=== PATIENT | male | born 1960 | race Caucasian/White ===

== ENCOUNTER 2016-09-06 09:13 | Inpatient (IN) | payer MEDICARE, MEDICAID ==
[~2016-09-06] VITALS: Ht 188 cm; Wt 78.1 kg
[~2016-09-06 09:13] MED LIST: OLAN405V IM
[2016-09-06 09:52] LABS: BASOPHILS # (AUTO) 0.12 K/uL (0.00-0.20); BASOPHILS % (AUTO) 1.1 % (0.0-2.0); EOSINOPHILS # (AUTO) 0.12 K/uL (0.00-0.70); EOSINOPHILS % (AUTO) 1.12 % (1.0-6.0); HEMATOCRIT 42.8 % (41-53); HEMOGLOBIN 14.1 g/dL (13.5-17.5); LYMPHOCYTES # (AUTO) 1.8 K/uL (1.0-4.8); LYMPHOCYTES % (AUTO) 16.5 % (22.0-44.0); MEAN CORPUSCULAR HEMOGLOBIN 30.2 pg (26.0-34.0); MEAN CORPUSCULAR VOLUME 92 fL (80-100); MONOCYTES # (AUTO) 0.9 K/uL (0.1-1.0); MONOCYTES % (AUTO) 7.8 % (2.0-9.0); NEUTROPHILS # (AUTO) 8.1 K/uL (1.8-7.7); NEUTROPHILS % (AUTO) 73.6 % (40.0-70.0); PLATELET COUNT (AUTO) 401 K/uL (150-450); RED BLOOD CELL COUNT(AUTO) 4.67 MIL/uL (4.50-5.90)
[2016-09-06 10:02] LABS: ANION GAP 7 mmol/L (8-16); CALCIUM, TOTAL 9.5 mg/dL (8.8-10.5); CARBON DIOXIDE 29 mmol/L (22-29); CHLORIDE 102 mmol/L (98-107); CREATININE 0.94 mg/dL (0.60-1.30); GLOMERULAR FILTR. RATE CALC > 60 mL/min (>60); POTASSIUM 5.4 mmol/L (3.5-5.1); SODIUM SERUM 138 mmol/L (136-145); UREA NITROGEN, BLOOD 21 mg/dL (7-18)
[2016-09-06 10:07] LABS: ALANINE AMINOTRANSFERASE 57 U/L (12-78); ALBUMIN 3.4 g/dL (3.4-5.0); ASPARTATE AMINOTRANSFERASE 36 U/L (15-37); BILIRUBIN,TOTAL 0.3 mg/dL (0.1-1.0); TOTAL PROTEIN, SERUM 7.5 g/dL (6.4-8.2)
[2016-09-06] MEDS ORDERED: LORazepam 1 MG TABLET PO ONE (12:00)
[2016-09-06] MEDS ORDERED: OLANZapine 5 MG TABLET PO ONE (12:00)
[2016-09-06] MEDS ORDERED: QUEtiapine FUMARATE 100 MG TABLET PO PRN (12:30)
[2016-09-06] MEDS ORDERED: ZOLPIDEM TARTRATE 10 MG TABLET PO PRN (12:30)
[2016-09-06 13:30] VITALS: BP 137/84
[2016-09-06 17:00] VITALS: BP 128/83
[2016-09-06 18:42] LABS: ADD UA MICROSCOPIC NO; APPEARANCE,URINE CLEAR (CLEAR); GLUCOSE, URINE (UA) NEGATIVE (NEGATIVE); KETONES,URINE NEGATIVE (NEGATIVE); LEUKOCYTE ESTERASE ,URINE NEGATIVE (NEGATIVE); OCCULT BLOOD,URINE NEGATIVE (NEGATIVE); PROTEIN,URINE NEGATIVE (NEGATIVE)
[2016-09-06] MEDS: OLANZapine 10 MG TABLET PO SCH (20:02)
[2016-09-07 08:00] VITALS: BP 113/75
[2016-09-07] MEDS: NICOTINE 21 MG/24 HOUR PATCH TD SCH (08:39)
[2016-09-07] MEDS: LORazepam 2 MG TABLET PO PRN ×2 (08:40→13:53)
[2016-09-07] MEDS ORDERED: BENZOCAINE/MENTHOL LOZENGE [8 LOZENGES/PACKET] MM PRN (10:45)
[2016-09-07] MEDS ORDERED: BACITRACIN 28.4 GM OINTMENT TP PRN (10:45)
[2016-09-07] MEDS ORDERED: MAG HYDROX/AL HYDROX/SIMETH ES 30 ML SUSPENSION UDCUP PO PRN (10:45)
[2016-09-07] MEDS ORDERED: CloNIDine HCL 0.1 MG TABLET PO PRN (10:45)
[2016-09-07] MEDS ORDERED: ALBUTEROL SULFATE HFA 90 MCG/PUFF 8 GM INHALER IH PRN (10:45)
[2016-09-07] MEDS ORDERED: LOPERAMIDE HCL 2 MG CAPSULE PO PRN (10:45)
[2016-09-07] MEDS ORDERED: MAGNESIUM HYDROXIDE SUSPENSION 30 ML UDCUP PO PRN (10:45)
[2016-09-07] MEDS ORDERED: PETROLATUM,WHITE 71 GM JELLY TP PRN (10:45)
[2016-09-07] MEDS ORDERED: IBUPROFEN 600 MG TABLET PO PRN (10:45)
[2016-09-07] MEDS ORDERED: ONDANSETRON HCL 4 MG TABLET PO PRN (10:45)
[2016-09-07] MEDS ORDERED: SODIUM POLYSTYRENE SULFONATE 15 GM/60 ML SUSPENSION BOTTLE PO ONE (10:45)
[2016-09-07] MEDS ORDERED: HydrOXYzine PAMOATE 50 MG CAPSULE PO PRN (12:45)
[2016-09-07] MEDS: THIAMINE HCL 100 MG TABLET PO SCH (15:57)
[2016-09-07] MEDS ORDERED: OLANZapine 5 MG RAPDIS TABLET PO PRN (17:30)
[2016-09-07 18:00] VITALS: BP 109/68
[2016-09-07] MEDS ORDERED: OLANZAPINE PAMOATE 405 MG/2.7 ML VIAL IM ONE (18:00)
[2016-09-07] MEDS: OLANZapine 10 MG TABLET PO SCH (20:11)
[2016-09-08 08:54] VITALS: BP 118/74
[2016-09-08] MEDS: GuaiFENesin/D-METHORPHAN/PHENYLEPH 5 ML LIQUID ORAL.SYG PO PRN ×2 (09:56→16:41)
[2016-09-08] MEDS: LORazepam 2 MG TABLET PO PRN ×2 (09:56→16:41)
[2016-09-08] MEDS: MULTIVITAMINS WITH MINERALS, THERAPEUTIC TABLET PO SCH (09:57)
[2016-09-08] MEDS: OMEPRAZOLE 20 MG CAPSULE PO SCH (09:57)
[2016-09-08] MEDS: FOLIC ACID 1 MG TABLET PO SCH (09:57)
[2016-09-08] MEDS: THIAMINE HCL 100 MG TABLET PO SCH ×2 (09:57→16:03)
[2016-09-08] MEDS: NALTREXONE HCL 50 MG TABLET PO SCH (09:58)
[2016-09-08] MEDS: DOCUSATE SODIUM 100 MG CAPSULE PO SCH (09:59)
[2016-09-08] MEDS: NICOTINE 21 MG/24 HOUR PATCH TD SCH (10:01)
[2016-09-08 10:09] VITALS: BP 120/70
[2016-09-08] MEDS: ACETAMINOPHEN 325 MG TABLET PO PRN (10:12)
[2016-09-08 16:28] VITALS: BP 104/62
[2016-09-09] MEDS: THIAMINE HCL 100 MG TABLET PO SCH ×2 (08:20→15:45)
[2016-09-09] MEDS: FOLIC ACID 1 MG TABLET PO SCH (08:20)
[2016-09-09] MEDS: DOCUSATE SODIUM 100 MG CAPSULE PO SCH (08:20)
[2016-09-09] MEDS: LORazepam 2 MG TABLET PO PRN (08:20)
[2016-09-09] MEDS: MULTIVITAMINS WITH MINERALS, THERAPEUTIC TABLET PO SCH (08:20)
[2016-09-09] MEDS: HALOPERIDOL 5 MG TABLET PO PRN (08:20)
[2016-09-09] MEDS: ACETAMINOPHEN 325 MG TABLET PO PRN (08:20)
[2016-09-09] MEDS: NALTREXONE HCL 50 MG TABLET PO SCH (08:20)
[2016-09-09] MEDS: GuaiFENesin/D-METHORPHAN/PHENYLEPH 5 ML LIQUID ORAL.SYG PO PRN (08:23)
[2016-09-09] MEDS: NICOTINE 21 MG/24 HOUR PATCH TD SCH (08:28)
[2016-09-09] MEDS: OMEPRAZOLE 20 MG CAPSULE PO SCH (09:21)
[2016-09-09 16:52] VITALS: BP 151/96
[2016-09-10] MEDS: THIAMINE HCL 100 MG TABLET PO SCH ×2 (09:01→16:05)
[2016-09-10] MEDS: FOLIC ACID 1 MG TABLET PO SCH (09:01)
[2016-09-10] MEDS: MULTIVITAMINS WITH MINERALS, THERAPEUTIC TABLET PO SCH (09:01)
[2016-09-10] MEDS: OMEPRAZOLE 20 MG CAPSULE PO SCH (09:01)
[2016-09-10] MEDS: NALTREXONE HCL 50 MG TABLET PO SCH (09:01)
[2016-09-10] MEDS: DOCUSATE SODIUM 100 MG CAPSULE PO SCH (09:01)
[2016-09-10] MEDS: NICOTINE 21 MG/24 HOUR PATCH TD SCH (09:03)
[2016-09-10] MEDS: GuaiFENesin/D-METHORPHAN/PHENYLEPH 5 ML LIQUID ORAL.SYG PO PRN ×2 (09:57→16:06)
[2016-09-10] MEDS: LORazepam 2 MG TABLET PO PRN ×2 (09:58→16:05)
[2016-09-10 16:03] VITALS: BP 128/90
[2016-09-11 06:45] VITALS: BP 124/92
[2016-09-11] MEDS: LORazepam 2 MG TABLET PO PRN ×2 (06:54→13:26)
[2016-09-11 08:00] VITALS: BP 106/60
[2016-09-11] MEDS: THIAMINE HCL 100 MG TABLET PO SCH ×2 (08:06→16:08)
[2016-09-11] MEDS: DOCUSATE SODIUM 100 MG CAPSULE PO SCH (08:06)
[2016-09-11] MEDS: MULTIVITAMINS WITH MINERALS, THERAPEUTIC TABLET PO SCH (08:06)
[2016-09-11] MEDS: OMEPRAZOLE 20 MG CAPSULE PO SCH (08:06)
[2016-09-11] MEDS: NALTREXONE HCL 50 MG TABLET PO SCH (08:06)
[2016-09-11] MEDS: FOLIC ACID 1 MG TABLET PO SCH (08:06)
[2016-09-11] MEDS: NICOTINE 21 MG/24 HOUR PATCH TD SCH (08:07)
[2016-09-11] MEDS: GuaiFENesin/D-METHORPHAN [SUGAR-FREE] 200-20MG/10 ML SYRUP UDCUP PO PRN (16:18)
[2016-09-11 17:30] VITALS: BP 125/84
[2016-09-12 00:40] VITALS: BP 124/86
[2016-09-12] MEDS: LORazepam 2 MG TABLET PO PRN ×3 (00:42→15:41)
[2016-09-12] MEDS: GuaiFENesin/D-METHORPHAN [SUGAR-FREE] 200-20MG/10 ML SYRUP UDCUP PO PRN (07:11)
[2016-09-12 08:07] VITALS: BP 113/76
[2016-09-12] MEDS: DOCUSATE SODIUM 100 MG CAPSULE PO SCH (08:54)
[2016-09-12] MEDS: OMEPRAZOLE 20 MG CAPSULE PO SCH (08:54)
[2016-09-12] MEDS: MULTIVITAMINS WITH MINERALS, THERAPEUTIC TABLET PO SCH (08:55)
[2016-09-12] MEDS: NALTREXONE HCL 50 MG TABLET PO SCH (08:55)
[2016-09-12] MEDS: THIAMINE HCL 100 MG TABLET PO SCH ×2 (08:55→15:52)
[2016-09-12] MEDS: NICOTINE 21 MG/24 HOUR PATCH TD SCH (08:55)
[2016-09-12] MEDS: FOLIC ACID 1 MG TABLET PO SCH (08:56)
[2016-09-12] MEDS ORDERED: SODIUM POLYSTYRENE SULFONATE 15 GM/60 ML SUSPENSION BOTTLE PO ONE (10:30)
[2016-09-12 16:29] VITALS: BP 123/88
[2016-09-13] MEDS: LORazepam 2 MG TABLET PO PRN ×2 (01:26→08:43)
[2016-09-13 07:15] LABS: ANION GAP 8 mmol/L (8-16); CALCIUM, TOTAL 8.9 mg/dL (8.8-10.5); CARBON DIOXIDE 29 mmol/L (22-29); CHLORIDE 103 mmol/L (98-107); CREATININE 0.86 mg/dL (0.60-1.30); GLOMERULAR FILTR. RATE CALC > 60 mL/min (>60); POTASSIUM 4.4 mmol/L (3.5-5.1); SODIUM SERUM 140 mmol/L (136-145); UREA NITROGEN, BLOOD 20 mg/dL (7-18)
[2016-09-13 08:00] VITALS: BP 127/91
[2016-09-13] MEDS: DOCUSATE SODIUM 100 MG CAPSULE PO SCH (08:42)
[2016-09-13] MEDS: OMEPRAZOLE 20 MG CAPSULE PO SCH (08:43)
[2016-09-13] MEDS: NALTREXONE HCL 50 MG TABLET PO SCH (08:43)
[2016-09-13] MEDS: THIAMINE HCL 100 MG TABLET PO SCH (08:43)
[2016-09-13] MEDS: FOLIC ACID 1 MG TABLET PO SCH (08:43)
[2016-09-13] MEDS: HALOPERIDOL 5 MG TABLET PO PRN (08:43)
[2016-09-13] MEDS: MULTIVITAMINS WITH MINERALS, THERAPEUTIC TABLET PO SCH (08:43)
[2016-09-13] MEDS: NICOTINE 21 MG/24 HOUR PATCH TD SCH (08:47)
[2016-09-13] MEDS ORDERED: OLAN405V IM (09:42)
[2016-09-13] MEDS ORDERED: NALT50 PO (09:42)
[2016-10-05] MEDS ORDERED: OLANZAPINE PAMOATE 405 MG/2.7 ML VIAL IM SCH (09:00)
== END 2016-09-13 11:45 | disposition home or self-care (01) | DRG 885 ==
LOC: EMS 09:16 → 3EX 12:16
PROVIDERS: ADMIT Psychiatry & Neurology Psychiatry; ATTEND Psychiatry & Neurology Psychiatry
DX: F25.0 Schizoaffective disorder, bipolar type (principal); F15.20 Other stimulant dependence, uncomplicated; R45.851 Suicidal ideations; B18.2 Chronic viral hepatitis C; E87.5 Hyperkalemia; F12.10 Cannabis abuse, uncomplicated; G47.00 Insomnia, unspecified; I10 Essential (primary) hypertension; J44.9 Chronic obstructive pulmonary disease, unspecified; J45.909 Unspecified asthma, uncomplicated; K21.9 Gastro-esophageal reflux disease without esophagitis; K59.00 Constipation, unspecified; M19.90 Unspecified osteoarthritis, unspecified site; F17.210 Nicotine dependence, cigarettes, uncomplicated; Z96.641 Presence of right artificial hip joint; R05 Cough; Z79.899 Other long term (current) drug therapy; Z71.6 Tobacco abuse counseling; Z71.51 Drug abuse counseling and surveillance of drug abuser; Z72.89 Other problems related to lifestyle; Z71.41 Alcohol abuse counseling and surveillance of alcoholic
CPT/HCPCS: 80307; 87081; 99285; G0480; J2358

== ENCOUNTER 2016-09-15 18:53 | Emergency (ER) | payer MEDICARE, OTHER ==
[~2016-09-15] VITALS: Ht 185.4 cm; Wt 100.0 kg
[~2016-09-15 18:53] MED LIST changes: +NALT50 PO
[2016-09-15] MEDS ORDERED: LORazepam 2 MG TABLET PO ONE (23:00)
[2016-09-15 23:05] VITALS: BP 135/72
== END 2016-09-15 23:13 | disposition home or self-care (01) ==
LOC: EMS 18:56
DX: F41.9 Anxiety disorder, unspecified (principal); F20.9 Schizophrenia, unspecified; F17.210 Nicotine dependence, cigarettes, uncomplicated
CPT/HCPCS: 99284

== ENCOUNTER 2016-09-16 23:33 | Emergency (ER) | payer MEDICARE, OTHER ==
[~2016-09-16] VITALS: Ht 188 cm; Wt 95.5 kg
[2016-09-16 23:46] VITALS: BP 108/72
== END 2016-09-17 02:22 | disposition left against medical advice (07) ==
LOC: EEVIPCON 23:36 → EMS 23:36
DX: F32.9 Major depressive disorder, single episode, unspecified (principal); F20.9 Schizophrenia, unspecified; F41.9 Anxiety disorder, unspecified; F17.200 Nicotine dependence, unspecified, uncomplicated; Z53.21 Procedure and treatment not carried out due to patient leaving prior to being seen by health care provider

== ENCOUNTER 2016-09-17 16:28 | Emergency (ER) | payer MEDICARE, OTHER ==
[~2016-09-17] VITALS: Ht 190.5 cm; Wt 68.2 kg
[2016-09-17 18:28] VITALS: BP 117/65
[2016-09-17] MEDS ORDERED: KETOROLAC TROMETHAMINE 60 MG/2 ML VIAL IM ONE (19:00)
== END 2016-09-17 19:43 | disposition home or self-care (01) ==
LOC: EMS 16:30
DX: S33.5XXA Sprain of ligaments of lumbar spine, initial encounter (principal); F17.200 Nicotine dependence, unspecified, uncomplicated; X58.XXXA Exposure to other specified factors, initial encounter; Y93.89 Activity, other specified; Y92.89 Other specified places as the place of occurrence of the external cause; Y99.8 Other external cause status
CPT/HCPCS: 81002; 96372; 99283; J1885

== ENCOUNTER 2016-10-17 19:00 | Emergency (ER) | payer MEDICARE, OTHER | END 2016-10-17 20:01 | disposition left against medical advice (07) | LOC: EMS 19:06 | DX: Z00.00 Encounter for general adult medical examination without abnormal findings (principal); Z53.21 Procedure and treatment not carried out due to patient leaving prior to being seen by health care provider ==

== ENCOUNTER 2016-11-19 17:01 | Inpatient (IN) | payer MEDICARE, MEDICAID ==
[~2016-11-19] VITALS: Ht 188 cm; Wt 79.9 kg
[2016-11-19] MEDS ORDERED: HALOPERIDOL 5 MG TABLET PO PRN (18:00)
[2016-11-19] MEDS ORDERED: ZOLPIDEM TARTRATE 10 MG TABLET PO PRN (18:00)
[2016-11-19 19:08] LABS: BASOPHILS % (AUTO) 0.8 % (0.0-2.0); EOSINOPHILS % (AUTO) 3.3 % (1.0-6.0); HEMATOCRIT 42.9 % (41-53); HEMOGLOBIN 14.2 g/dL (13.5-17.5); LYMPHOCYTES # (AUTO) 2.2 K/uL (1.0-4.8); LYMPHOCYTES % (AUTO) 29.4 % (22.0-44.0); MEAN CORPUSCULAR HEMOGLOBIN 30.8 pg (26.0-34.0); MEAN CORPUSCULAR HGB CONC 33.1 G/dL (31.0-37.0); MEAN CORPUSCULAR VOLUME 93 fL (80-100); MONOCYTES # (AUTO) 0.8 K/uL (0.1-1.0); MONOCYTES % (AUTO) 10.6 % (2.0-9.0); NEUTROPHILS # (AUTO) 4.2 K/uL (1.8-7.7); NEUTROPHILS % (AUTO) 55.9 % (40.0-70.0); PLATELET COUNT (AUTO) 309 K/uL (150-450); RED CELL DISTRIBUTION WIDTH 13.4 % (11.5-14.5); WHITE BLOOD COUNT (AUTO) 7.4 K/uL (4.5-11.0)
[2016-11-19 19:19] LABS: ANION GAP 12 mmol/L (8-16); CALCIUM, TOTAL 9.2 mg/dL (8.8-10.5); CARBON DIOXIDE 24 mmol/L (22-29); CHLORIDE 106 mmol/L (98-107); GLOMERULAR FILTR. RATE CALC > 60 mL/min (>60); POTASSIUM 4.3 mmol/L (3.5-5.1); SODIUM SERUM 142 mmol/L (136-145); UREA NITROGEN, BLOOD 18 mg/dL (7-18)
[2016-11-19 19:26] LABS: ALANINE AMINOTRANSFERASE 46 U/L (12-78); ALBUMIN 3.5 g/dL (3.4-5.0); ASPARTATE AMINOTRANSFERASE 20 U/L (15-37); BILIRUBIN,TOTAL 0.2 mg/dL (0.1-1.0); TOTAL PROTEIN, SERUM 7.4 g/dL (6.4-8.2)
[2016-11-19 20:42] VITALS: BP 140/81
[2016-11-20] MEDS ORDERED: LORazepam 2 MG/ML VIAL IM ONE (09:00)
[2016-11-20] MEDS ORDERED: DiphenhydrAMINE HCL 50 MG/ML VIAL IM ONE (09:00)
[2016-11-20] MEDS ORDERED: HALOPERIDOL LACTATE 5 MG/ML VIAL IM ONE (09:00)
[2016-11-20] MEDS ORDERED: LORazepam 2 MG/ML VIAL ONE (09:01)
[2016-11-20] MEDS ORDERED: HALOPERIDOL LACTATE 5 MG/ML VIAL ONE (09:02)
[2016-11-20] MEDS ORDERED: DiphenhydrAMINE HCL 50 MG/ML VIAL ONE (09:02)
[2016-11-21] MEDS ORDERED: -PHARMACY VACCINE NOTE- MISC ONE ×2 (05:30)
[2016-11-21] MEDS: OLANZapine 7.5 MG TABLET PO SCH (08:08)
[2016-11-21] MEDS: LORazepam 2 MG TABLET PO PRN ×2 (13:18→19:43)
[2016-11-21] MEDS ORDERED: ALBUTEROL SULFATE HFA 90 MCG/PUFF 8 GM INHALER IH PRN (13:30)
[2016-11-21] MEDS ORDERED: IBUPROFEN 600 MG TABLET PO PRN (13:30)
[2016-11-21] MEDS ORDERED: MAG HYDROX/AL HYDROX/SIMETH ES 30 ML SUSPENSION UDCUP PO PRN (13:30)
[2016-11-21] MEDS ORDERED: PETROLATUM,WHITE 71 GM JELLY TP PRN (13:30)
[2016-11-21] MEDS ORDERED: LOPERAMIDE HCL 2 MG CAPSULE PO PRN (13:30)
[2016-11-21] MEDS ORDERED: BENZOCAINE/MENTHOL LOZENGE [8 LOZENGES/PACKET] MM PRN (13:30)
[2016-11-21] MEDS ORDERED: MAGNESIUM HYDROXIDE SUSPENSION 30 ML UDCUP PO PRN (13:30)
[2016-11-21] MEDS ORDERED: ONDANSETRON HCL 4 MG TABLET PO PRN (13:30)
[2016-11-21] MEDS ORDERED: ACETAMINOPHEN 325 MG TABLET PO PRN (13:30)
[2016-11-21] MEDS ORDERED: BACITRACIN 28.4 GM OINTMENT TP PRN (13:30)
[2016-11-21] MEDS ORDERED: CloNIDine HCL 0.1 MG TABLET PO PRN (13:30)
[2016-11-21] MEDS: NICOTINE 21 MG/24 HOUR PATCH TD SCH (14:46)
[2016-11-21 16:32] VITALS: BP 125/72
[2016-11-22] MEDS: OMEPRAZOLE 20 MG CAPSULE PO SCH (09:16)
[2016-11-22] MEDS: NICOTINE 21 MG/24 HOUR PATCH TD SCH (09:16)
[2016-11-22] MEDS: LORazepam 2 MG TABLET PO PRN ×2 (09:16→14:41)
[2016-11-22] MEDS: OLANZapine 7.5 MG TABLET PO SCH (09:16)
[2016-11-22] MEDS: DOCUSATE SODIUM 100 MG CAPSULE PO SCH (09:17)
[2016-11-22] MEDS ORDERED: HydrOXYzine PAMOATE 50 MG CAPSULE PO PRN (13:30)
[2016-11-22] MEDS ORDERED: GuaiFENesin/D-METHORPHAN [SUGAR-FREE] 200-20MG/10 ML SYRUP UDCUP PO PRN (13:30)
[2016-11-22] MEDS ORDERED: PROMETHAZINE HCL 25 MG TABLET PO PRN (13:30)
[2016-11-22] MEDS: THIAMINE HCL 100 MG TABLET PO SCH (16:08)
[2016-11-22 16:38] VITALS: BP 95/69
[2016-11-23 08:00] VITALS: BP 110/81
[2016-11-23] MEDS: FOLIC ACID 1 MG TABLET PO SCH (08:46)
[2016-11-23] MEDS: DOCUSATE SODIUM 100 MG CAPSULE PO SCH (08:46)
[2016-11-23] MEDS: NALTREXONE HCL 50 MG TABLET PO SCH (08:47)
[2016-11-23] MEDS: OMEPRAZOLE 20 MG CAPSULE PO SCH (08:47)
[2016-11-23] MEDS: OLANZapine 7.5 MG TABLET PO SCH (08:47)
[2016-11-23] MEDS: MULTIVITAMINS WITH MINERALS, THERAPEUTIC TABLET PO SCH (08:47)
[2016-11-23] MEDS: THIAMINE HCL 100 MG TABLET PO SCH ×2 (08:47→16:44)
[2016-11-23] MEDS: NICOTINE 21 MG/24 HOUR PATCH TD SCH (08:48)
[2016-11-23] MEDS: LORazepam 2 MG TABLET PO PRN ×2 (08:49→19:55)
[2016-11-23] MEDS ORDERED: OLANZAPINE PAMOATE 405 MG/2.7 ML VIAL IM SCH (15:00)
[2016-11-23 18:03] VITALS: BP 120/86
[2016-11-24] MEDS: NALTREXONE HCL 50 MG TABLET PO SCH (08:43)
[2016-11-24] MEDS: OMEPRAZOLE 20 MG CAPSULE PO SCH (08:43)
[2016-11-24] MEDS: DOCUSATE SODIUM 100 MG CAPSULE PO SCH (08:43)
[2016-11-24] MEDS: FOLIC ACID 1 MG TABLET PO SCH (08:44)
[2016-11-24] MEDS: OLANZapine 7.5 MG TABLET PO SCH (08:45)
[2016-11-24] MEDS: THIAMINE HCL 100 MG TABLET PO SCH (08:45)
[2016-11-24] MEDS: MULTIVITAMINS WITH MINERALS, THERAPEUTIC TABLET PO SCH (08:46)
[2016-11-24] MEDS: NICOTINE 21 MG/24 HOUR PATCH TD SCH (08:52)
[2016-11-24] MEDS ORDERED: NALT50 PO (10:09)
[2016-11-24] MEDS ORDERED: OLAN405V IM ×2 (10:09→13:54)
[2016-11-24] MEDS ORDERED: OLAN7.5T2 PO (12:16)
[2016-11-24] MEDS ORDERED: DSS100 PO (12:16)
[2016-11-24] MEDS ORDERED: NALT50TA10 PO (12:16)
[2016-11-24] MEDS ORDERED: OMEP20 PO (12:16)
[2016-11-24] MEDS: LORazepam 2 MG TABLET PO PRN (12:28)
== END 2016-11-24 14:35 | disposition home or self-care (01) | DRG 885 ==
LOC: EMS 17:03 → 3EX 18:55 → UNDOADMIN 19:04
PROVIDERS: ADMIT Psychiatry & Neurology Child & Adolescent Psychiatry; ATTEND Psychiatry & Neurology Psychiatry
PROC: GZHZZZZ Group Psychotherapy (ICD-10-PCS; principal; 2016-11-19)
PROC: GZ51ZZZ Individual Psychotherapy, Behavioral (ICD-10-PCS; 2016-11-19)
DX: F25.0 Schizoaffective disorder, bipolar type (principal); R45.851 Suicidal ideations; F41.9 Anxiety disorder, unspecified; G89.29 Other chronic pain; M25.569 Pain in unspecified knee; K21.9 Gastro-esophageal reflux disease without esophagitis; J44.9 Chronic obstructive pulmonary disease, unspecified; B19.20 Unspecified viral hepatitis C without hepatic coma; R45.850 Homicidal ideations; K59.00 Constipation, unspecified; F17.210 Nicotine dependence, cigarettes, uncomplicated; F12.90 Cannabis use, unspecified, uncomplicated; F15.90 Other stimulant use, unspecified, uncomplicated; Z71.6 Tobacco abuse counseling; Z59.0 Homelessness; Z72.89 Other problems related to lifestyle; Z71.41 Alcohol abuse counseling and surveillance of alcoholic; Z96.641 Presence of right artificial hip joint; Z91.19 Patient's noncompliance with other medical treatment and regimen; Z87.81 Personal history of (healed) traumatic fracture; Z91.5 Personal history of self-harm
CPT/HCPCS: 99285; G0480; J1200; J1630; J2060; J2358

== ENCOUNTER 2016-12-30 10:07 | Inpatient (IN) | payer MEDICARE, MEDICAID ==
[~2016-12-30] VITALS: Ht 188 cm; Wt 78.2 kg
[~2016-12-30 10:07] MED LIST changes: +DSS100 PO; +NALT50TA10 PO; +OMEP20 PO
[2016-12-30] MEDS ORDERED: DiphenhydrAMINE HCL 50 MG/ML VIAL IM ONE (10:15)
[2016-12-30] MEDS ORDERED: LORazepam 2 MG/ML VIAL IM ONE ×2 (10:15→13:45)
[2016-12-30] MEDS ORDERED: HALOPERIDOL LACTATE 5 MG/ML VIAL IM ONE ×2 (10:15→13:45)
[2016-12-30 10:27] LABS: GLUCOSE,POINT OF CARE 106 MG/DL (70-110)
[2016-12-30 10:33] LABS: BASOPHILS # (AUTO) 0.05 K/uL (0.00-0.20); BASOPHILS % (AUTO) 0.7 % (0.0-2.0); EOSINOPHILS # (AUTO) 0.09 K/uL (0.00-0.70); EOSINOPHILS % (AUTO) 1.29 % (1.0-6.0); HEMATOCRIT 39.9 % (41-53); HEMOGLOBIN 13.4 g/dL (13.5-17.5); LYMPHOCYTES # (AUTO) 1.4 K/uL (1.0-4.8); LYMPHOCYTES % (AUTO) 20.5 % (22.0-44.0); MEAN CORPUSCULAR HEMOGLOBIN 30.6 pg (26.0-34.0); MEAN CORPUSCULAR HGB CONC 33.6 G/dL (31.0-37.0); MEAN CORPUSCULAR VOLUME 91 fL (80-100); MONOCYTES # (AUTO) 0.8 K/uL (0.1-1.0); MONOCYTES % (AUTO) 11.6 % (2.0-9.0); NEUTROPHILS # (AUTO) 4.5 K/uL (1.8-7.7); NEUTROPHILS % (AUTO) 65.8 % (40.0-70.0); PLATELET COUNT (AUTO) 401 K/uL (150-450); RED BLOOD CELL COUNT(AUTO) 4.38 MIL/uL (4.50-5.90); RED CELL DISTRIBUTION WIDTH 13.1 % (11.5-14.5); WHITE BLOOD COUNT (AUTO) 6.8 K/uL (4.5-11.0)
[2016-12-30 10:46] LABS: ANION GAP 13 mmol/L (8-16); CARBON DIOXIDE 23 mmol/L (22-29); CHLORIDE 102 mmol/L (98-107); CREATININE 1.12 mg/dL (0.60-1.30); GLOMERULAR FILTR. RATE CALC > 60 mL/min (>60); POTASSIUM 4.1 mmol/L (3.5-5.1); SODIUM SERUM 138 mmol/L (136-145); UREA NITROGEN, BLOOD 20 mg/dL (7-18)
[2016-12-30 10:52] LABS: ALANINE AMINOTRANSFERASE 70 U/L (12-78); ALBUMIN 3.8 g/dL (3.4-5.0); ASPARTATE AMINOTRANSFERASE 62 U/L (15-37); BILIRUBIN,TOTAL 0.4 mg/dL (0.1-1.0); TOTAL PROTEIN, SERUM 7.5 g/dL (6.4-8.2)
[2016-12-30] MEDS ORDERED: ZOLPIDEM TARTRATE 10 MG TABLET PO PRN (12:15)
[2016-12-30] MEDS ORDERED: HALOPERIDOL 5 MG TABLET PO PRN (12:15)
[2016-12-30 15:06] VITALS: BP 127/86
[2016-12-30 15:24] VITALS: BP 127/86
[2016-12-30 16:13] VITALS: BP 114/76
[2016-12-30] MEDS: LORazepam 2 MG TABLET PO PRN (20:38)
[2016-12-31 05:36] VITALS: BP 122/80
[2016-12-31 08:18] VITALS: BP 125/74
[2016-12-31] MEDS: NALTREXONE HCL 50 MG TABLET PO SCH (08:24)
[2016-12-31] MEDS: LORazepam 2 MG TABLET PO PRN ×4 (08:24→18:46)
[2016-12-31] MEDS: OLANZapine 10 MG TABLET PO SCH (08:24)
[2016-12-31] MEDS ORDERED: CloNIDine HCL 0.1 MG TABLET PO PRN (10:15)
[2016-12-31] MEDS ORDERED: ONDANSETRON HCL 4 MG TABLET PO PRN (10:15)
[2016-12-31] MEDS ORDERED: IBUPROFEN 600 MG TABLET PO PRN (10:15)
[2016-12-31] MEDS ORDERED: ALBUTEROL SULFATE HFA 90 MCG/PUFF 8 GM INHALER IH PRN (10:15)
[2016-12-31] MEDS ORDERED: PETROLATUM,WHITE 71 GM JELLY TP PRN (10:15)
[2016-12-31] MEDS ORDERED: ACETAMINOPHEN 325 MG TABLET PO PRN (10:15)
[2016-12-31] MEDS ORDERED: MAG HYDROX/AL HYDROX/SIMETH ES 30 ML SUSPENSION UDCUP PO PRN (10:15)
[2016-12-31] MEDS ORDERED: LOPERAMIDE HCL 2 MG CAPSULE PO PRN (10:15)
[2016-12-31] MEDS ORDERED: MAGNESIUM HYDROXIDE SUSPENSION 30 ML UDCUP PO PRN (10:15)
[2016-12-31] MEDS ORDERED: BACITRACIN 28.4 GM OINTMENT TP PRN (10:15)
[2016-12-31] MEDS ORDERED: BENZOCAINE/MENTHOL LOZENGE MM PRN (10:15)
[2016-12-31] MEDS: NICOTINE 21 MG/24 HOUR PATCH TD SCH (11:14)
[2016-12-31 16:11] VITALS: BP 126/75
[2016-12-31] MEDS: TERBINAFINE HCL 1% 30 GM CREAM TP SCH (17:04)
[2016-12-31] MEDS: MAGNESIUM SULFATE 454 GM BOX TP SCH (17:04)
[2017-01-01 08:29] LABS: CHOL/HDL RATIO 2.5 (4.2-7.3)
[2017-01-01 08:37] VITALS: BP 110/82
[2017-01-01] MEDS: NICOTINE 21 MG/24 HOUR PATCH TD SCH (08:55)
[2017-01-01] MEDS: NALTREXONE HCL 50 MG TABLET PO SCH (08:55)
[2017-01-01] MEDS: OLANZapine 10 MG TABLET PO SCH (08:55)
[2017-01-01] MEDS: LORazepam 2 MG TABLET PO PRN ×3 (08:55→22:53)
[2017-01-01] MEDS: TERBINAFINE HCL 1% 30 GM CREAM TP SCH (09:13)
[2017-01-01] MEDS: MAGNESIUM SULFATE 454 GM BOX TP SCH (09:13)
[2017-01-01 16:40] VITALS: BP 126/98
[2017-01-01 20:49] VITALS: BP 110/82
[2017-01-01] MEDS: OLANZapine 5 MG TABLET PO SCH (20:53)
[2017-01-02 02:50] VITALS: BP 110/92
[2017-01-02 06:40] VITALS: BP 116/89
[2017-01-02] MEDS: LORazepam 2 MG TABLET PO PRN ×4 (06:44→22:32)
[2017-01-02] MEDS: TERBINAFINE HCL 1% 30 GM CREAM TP SCH (09:00)
[2017-01-02] MEDS: MAGNESIUM SULFATE 454 GM BOX TP SCH (09:00)
[2017-01-02] MEDS ORDERED: LORazepam 2 MG/ML VIAL IM ONE (09:45)
[2017-01-02] MEDS ORDERED: DiphenhydrAMINE HCL 50 MG/ML VIAL IM ONE (09:45)
[2017-01-02] MEDS: NALTREXONE HCL 50 MG TABLET PO SCH (10:03)
[2017-01-02] MEDS: NICOTINE 21 MG/24 HOUR PATCH TD SCH (10:04)
[2017-01-02] MEDS: OLANZapine 10 MG TABLET PO SCH (10:05)
[2017-01-02 16:11] VITALS: BP 122/87
[2017-01-02] MEDS ORDERED: LORazepam 2 MG TABLET ONE (20:10)
[2017-01-02] MEDS: OLANZapine 5 MG TABLET PO SCH ×2 (21:00→22:22)
[2017-01-03] MEDS: NALTREXONE HCL 50 MG TABLET PO SCH (08:08)
[2017-01-03] MEDS: MAGNESIUM SULFATE 454 GM BOX TP SCH (08:09)
[2017-01-03] MEDS: TERBINAFINE HCL 1% 30 GM CREAM TP SCH (08:09)
[2017-01-03] MEDS: NICOTINE 21 MG/24 HOUR PATCH TD SCH (08:09)
[2017-01-03] MEDS: OLANZapine 10 MG TABLET PO SCH (08:09)
[2017-01-03] MEDS: LORazepam 2 MG TABLET PO PRN ×4 (08:10→21:06)
[2017-01-03 08:16] VITALS: BP 118/80
[2017-01-03 12:24] VITALS: BP 116/78
[2017-01-03] MEDS ORDERED: OLAN10TA20 PO ×2 (15:13)
[2017-01-03] MEDS ORDERED: NALT50 PO (15:13)
[2017-01-03] MEDS ORDERED: GuaiFENesin/D-METHORPHAN [SUGAR-FREE] 200-20MG/10 ML SYRUP UDCUP PO PRN (15:15)
[2017-01-03] MEDS ORDERED: HydrOXYzine PAMOATE 50 MG CAPSULE PO PRN (15:15)
[2017-01-03 16:32] VITALS: BP 118/69
[2017-01-03] MEDS ORDERED: THIAMINE HCL 100 MG TABLET PO SCH (17:00)
[2017-01-03] MEDS ORDERED: OLANZapine 10 MG TABLET PO SCH (21:00)
[2017-01-04] MEDS ORDERED: THIA100 PO (05:32)
[2017-01-04] MEDS ORDERED: OLAN10TA3 PO ×2 (05:32→07:48)
[2017-01-04] MEDS ORDERED: MULT-723 PO (05:32)
[2017-01-04] MEDS ORDERED: FOLI1 PO (05:32)
[2017-01-04] MEDS ORDERED: MULTIVITAMINS WITH MINERALS, THERAPEUTIC TABLET PO SCH (09:00)
[2017-01-04] MEDS ORDERED: FOLIC ACID 1 MG TABLET PO SCH (09:00)
[2017-01-04 09:46] VITALS: BP 109/78
== END 2017-01-04 09:15 | disposition home or self-care (01) | DRG 885 ==
LOC: EEVIPCON 10:09 → EMS 10:09 → B2X 13:07 → UNDODISIN 01-02 10:00
PROVIDERS: ADMIT Psychiatry & Neurology Psychiatry; ATTEND Psychiatry & Neurology Psychiatry
PROC: GZ51ZZZ Individual Psychotherapy, Behavioral (ICD-10-PCS; principal; 2016-12-30)
DX: F20.0 Paranoid schizophrenia (principal); R45.851 Suicidal ideations; B18.2 Chronic viral hepatitis C; B35.3 Tinea pedis; F12.90 Cannabis use, unspecified, uncomplicated; F17.200 Nicotine dependence, unspecified, uncomplicated; F39 Unspecified mood [affective] disorder; J44.9 Chronic obstructive pulmonary disease, unspecified; K21.9 Gastro-esophageal reflux disease without esophagitis; K59.00 Constipation, unspecified; M19.90 Unspecified osteoarthritis, unspecified site; Z91.14 Patient's other noncompliance with medication regimen; Z91.19 Patient's noncompliance with other medical treatment and regimen; Z96.641 Presence of right artificial hip joint; Z71.41 Alcohol abuse counseling and surveillance of alcoholic
CPT/HCPCS: 82962; 96372; 99291; G0480; J1200; J1630; J2060

== ENCOUNTER 2017-03-07 09:53 | Inpatient (IN) | payer MEDICARE, MEDICAID ==
[~2017-03-07] VITALS: Ht 188 cm; Wt 78.6 kg
[~2017-03-07 09:53] MED LIST changes: -DSS100 PO; +OLAN10TA20 PO; +OLAN10TA3 PO; -OLAN405V IM; -OMEP20 PO
[2017-03-07] MEDS ORDERED: ZOLPIDEM TARTRATE 10 MG TABLET PO PRN (10:00)
[2017-03-07] MEDS ORDERED: QUEtiapine FUMARATE 100 MG TABLET PO PRN (10:00)
[2017-03-07] MEDS ORDERED: DiphenhydrAMINE HCL 50 MG/ML VIAL IM ONE (10:00)
[2017-03-07] MEDS ORDERED: HALOPERIDOL LACTATE 5 MG/ML VIAL IM ONE (10:00)
[2017-03-07] MEDS ORDERED: LORazepam 2 MG/ML VIAL IM ONE (10:00)
[2017-03-07 12:33] VITALS: BP 139/90
[2017-03-07] MEDS ORDERED: LOPERAMIDE HCL 2 MG CAPSULE PO PRN (15:45)
[2017-03-07] MEDS ORDERED: PROMETHAZINE HCL 25 MG TABLET PO PRN (15:45)
[2017-03-07] MEDS ORDERED: ACETAMINOPHEN 325 MG TABLET PO PRN (15:45)
[2017-03-07] MEDS ORDERED: MAGNESIUM HYDROXIDE SUSPENSION 30 ML UDCUP PO PRN (15:45)
[2017-03-07] MEDS ORDERED: HydrOXYzine PAMOATE 50 MG CAPSULE PO PRN (15:45)
[2017-03-07] MEDS ORDERED: PALIPERIDONE 3 MG ER TABLET PO PRN (15:45)
[2017-03-07] MEDS ORDERED: GuaiFENesin/D-METHORPHAN [SUGAR-FREE] 200-20MG/10 ML SYRUP UDCUP PO PRN (15:45)
[2017-03-07] MEDS ORDERED: MAG HYDROX/AL HYDROX/SIMETH ES 30 ML SUSPENSION UDCUP PO PRN (15:45)
[2017-03-07 16:16] VITALS: BP 125/65
[2017-03-07] MEDS: THIAMINE HCL 100 MG TABLET PO SCH (17:09)
[2017-03-07] MEDS: LORazepam 2 MG TABLET PO PRN (17:09)
[2017-03-07] MEDS ORDERED: PALIPERIDONE 3 MG ER TABLET PO SCH (21:00)
[2017-03-07] MEDS: PALIPERIDONE PALMITATE 234 MG/1.5 ML SYRINGE IM ONE ×2 (21:43→22:00)
[2017-03-08 06:32] VITALS: BP 121/74
[2017-03-08 08:05] VITALS: BP 116/78
[2017-03-08] MEDS: MULTIVITAMINS WITH MINERALS, THERAPEUTIC TABLET PO SCH (09:00)
[2017-03-08] MEDS: THIAMINE HCL 100 MG TABLET PO SCH ×2 (09:00→17:01)
[2017-03-08] MEDS: FOLIC ACID 1 MG TABLET PO SCH (09:00)
[2017-03-08] MEDS: NALTREXONE HCL 50 MG TABLET PO SCH (09:00)
[2017-03-08 11:04] VITALS: BP 112/72
[2017-03-08] MEDS: BACITRACIN 28.4 GM OINTMENT TP SCH ×2 (12:45→17:01)
[2017-03-08 16:03] VITALS: BP 133/82
[2017-03-08] MEDS: NICOTINE 21 MG/24 HOUR PATCH TD SCH (17:01)
[2017-03-08] MEDS ORDERED: PALIPERIDONE 3 MG ER TABLET PO SCH (21:00)
[2017-03-09 06:30] VITALS: BP 120/76
[2017-03-09 08:12] VITALS: BP 113/69
[2017-03-09] MEDS: THIAMINE HCL 100 MG TABLET PO SCH ×2 (09:04→16:09)
[2017-03-09] MEDS: FOLIC ACID 1 MG TABLET PO SCH (09:04)
[2017-03-09] MEDS: NICOTINE 21 MG/24 HOUR PATCH TD SCH (09:04)
[2017-03-09] MEDS: NALTREXONE HCL 50 MG TABLET PO SCH (09:05)
[2017-03-09] MEDS: BACITRACIN 28.4 GM OINTMENT TP SCH ×2 (09:05→16:09)
[2017-03-09] MEDS: MULTIVITAMINS WITH MINERALS, THERAPEUTIC TABLET PO SCH (09:05)
[2017-03-09] MEDS: LORazepam 2 MG TABLET PO PRN (10:35)
[2017-03-09] MEDS ORDERED: DiphenhydrAMINE HCL 50 MG/ML VIAL ONE (11:37)
[2017-03-09] MEDS ORDERED: HALOPERIDOL LACTATE 5 MG/ML VIAL ONE ×2 (11:37)
[2017-03-09] MEDS ORDERED: LORazepam 2 MG/ML VIAL ONE (11:37)
[2017-03-09] MEDS ORDERED: NALT50 PO (13:47)
[2017-03-09] MEDS ORDERED: PALI234D IM (13:47)
[2017-03-09] MEDS ORDERED: PALIPERIDONE PALMITATE 234 MG/1.5 ML SYRINGE IM ONE (16:00)
[2017-03-09 16:04] VITALS: BP 118/72
[2017-03-10 06:29] VITALS: BP 112/81
[2017-03-10 08:02] VITALS: BP 120/78
[2017-03-10] MEDS: THIAMINE HCL 100 MG TABLET PO SCH (08:03)
[2017-03-10] MEDS: MULTIVITAMINS WITH MINERALS, THERAPEUTIC TABLET PO SCH (08:03)
[2017-03-10] MEDS: FOLIC ACID 1 MG TABLET PO SCH (08:03)
[2017-03-10] MEDS: NALTREXONE HCL 50 MG TABLET PO SCH (08:03)
[2017-03-10] MEDS: NICOTINE 21 MG/24 HOUR PATCH TD SCH (08:04)
[2017-03-10] MEDS: BACITRACIN 28.4 GM OINTMENT TP SCH (08:04)
[2017-03-11] MEDS ORDERED: PALIPERIDONE PALMITATE 156 MG/ML SYRINGE IM ONE (09:00)
[2017-04-06] MEDS ORDERED: PALIPERIDONE PALMITATE 234 MG/1.5 ML SYRINGE IM SCH (09:00)
== END 2017-03-10 10:00 | disposition home or self-care (01) | DRG 885 ==
LOC: B3A 10:07
PROVIDERS: ADMIT Psychiatry & Neurology Psychiatry; ATTEND Psychiatry & Neurology Psychiatry
PROC: GZ51ZZZ Individual Psychotherapy, Behavioral (ICD-10-PCS; principal; 2017-03-10)
DX: F25.0 Schizoaffective disorder, bipolar type (principal); B18.2 Chronic viral hepatitis C; F17.200 Nicotine dependence, unspecified, uncomplicated; J44.9 Chronic obstructive pulmonary disease, unspecified; K21.9 Gastro-esophageal reflux disease without esophagitis; K59.00 Constipation, unspecified; M19.90 Unspecified osteoarthritis, unspecified site; S80.211A Abrasion, right knee, initial encounter; Z96.641 Presence of right artificial hip joint; X58.XXXA Exposure to other specified factors, initial encounter; Z71.6 Tobacco abuse counseling; Y93.89 Activity, other specified; Z91.19 Patient's noncompliance with other medical treatment and regimen; Y92.89 Other specified places as the place of occurrence of the external cause; Y99.8 Other external cause status
CPT/HCPCS: J1200; J1630; J2060

== ENCOUNTER 2017-05-17 08:23 | Inpatient (IN) | payer MEDICARE, MEDICAID, OTHER ==
[~2017-05-17] VITALS: Ht 182.9 cm; Wt 71.7 kg
[~2017-05-17 08:23] MED LIST changes: -NALT50 PO; -NALT50TA10 PO; +NALT50TA6 PO; -OLAN10TA20 PO; -OLAN10TA3 PO; +PALI234D IM
[2017-05-17] MEDS ORDERED: LORazepam 2 MG/ML VIAL ONE (08:30)
[2017-05-17] MEDS ORDERED: LORazepam 2 MG/ML VIAL IM ONE ×2 (08:30→09:30)
[2017-05-17] MEDS ORDERED: DiphenhydrAMINE HCL 50 MG/ML VIAL ONE (08:30)
[2017-05-17] MEDS ORDERED: HALOPERIDOL LACTATE 5 MG/ML VIAL ONE (08:30)
[2017-05-17] MEDS ORDERED: DiphenhydrAMINE HCL 50 MG/ML VIAL IM ONE (08:30)
[2017-05-17] MEDS ORDERED: HALOPERIDOL LACTATE 5 MG/ML VIAL IM ONE ×2 (08:30→09:30)
[2017-05-17] MEDS ORDERED: HALOPERIDOL 5 MG TABLET PO PRN (10:00)
[2017-05-17 10:24] LABS: BASOPHILS % (AUTO) 0.6 % (0.0-2.0); HEMOGLOBIN 14.3 g/dL (13.5-17.5); LYMPHOCYTES # (AUTO) 1.4 K/uL (1.0-4.8); LYMPHOCYTES % (AUTO) 19.8 % (22.0-44.0); MEAN CORPUSCULAR HEMOGLOBIN 31.6 pg (26.0-34.0); MEAN CORPUSCULAR VOLUME 93 fL (80-100); MONOCYTES # (AUTO) 0.9 K/uL (0.1-1.0); MONOCYTES % (AUTO) 11.9 % (2.0-9.0); NEUTROPHILS # (AUTO) 4.8 K/uL (1.8-7.7); NEUTROPHILS % (AUTO) 66.7 % (40.0-70.0); PLATELET COUNT (AUTO) 294 K/uL (150-450); RED BLOOD CELL COUNT(AUTO) 4.52 MIL/uL (4.50-5.90); RED CELL DISTRIBUTION WIDTH 13.5 % (11.5-14.5); WHITE BLOOD COUNT (AUTO) 7.2 K/uL (4.5-11.0)
[2017-05-17 10:34] LABS: ANION GAP 6 mmol/L (8-16); CALCIUM, TOTAL 9.3 mg/dL (8.8-10.5); CARBON DIOXIDE 28 mmol/L (22-29); CHLORIDE 104 mmol/L (98-107); CREATININE 0.89 mg/dL (0.60-1.30); GLOMERULAR FILTR. RATE CALC > 60 mL/min (>60); POTASSIUM 3.9 mmol/L (3.5-5.1); SODIUM SERUM 138 mmol/L (136-145); UREA NITROGEN, BLOOD 20 mg/dL (7-18)
[2017-05-17 10:39] LABS: ALANINE AMINOTRANSFERASE 47 U/L (12-78); ALBUMIN 3.4 g/dL (3.4-5.0); ASPARTATE AMINOTRANSFERASE 47 U/L (15-37); BILIRUBIN,TOTAL 0.4 mg/dL (0.1-1.0); TOTAL PROTEIN, SERUM 6.6 g/dL (6.4-8.2)
[2017-05-17] MEDS ORDERED: INFLUENZA VIRUS VACCINE QVS 2017-18 (3YR+)/PF 60 MCG/0.5 ML SYRINGE IM ONE (15:15)
[2017-05-17 16:00] VITALS: BP 121/70
[2017-05-17] MEDS: OLANZapine 10 MG TABLET PO SCH (20:50)
[2017-05-18] MEDS ORDERED: -PHARMACY VACCINE NOTE- MISC ONE ×2 (02:45)
[2017-05-18] MEDS ORDERED: LOPERAMIDE HCL 2 MG CAPSULE PO PRN (06:15)
[2017-05-18] MEDS ORDERED: MAGNESIUM HYDROXIDE SUSPENSION 30 ML UDCUP PO PRN (06:15)
[2017-05-18] MEDS ORDERED: IBUPROFEN 600 MG TABLET PO PRN (06:15)
[2017-05-18] MEDS ORDERED: BENZOCAINE/MENTHOL LOZENGE MM PRN (06:15)
[2017-05-18] MEDS ORDERED: ALBUTEROL SULFATE HFA 90 MCG/PUFF 8 GM INHALER IH PRN (06:15)
[2017-05-18] MEDS ORDERED: BACITRACIN 28.4 GM OINTMENT TP PRN (06:15)
[2017-05-18] MEDS ORDERED: MAG HYDROX/AL HYDROX/SIMETH ES 30 ML SUSPENSION UDCUP PO PRN (06:15)
[2017-05-18] MEDS ORDERED: PETROLATUM,WHITE 71 GM JELLY TP PRN (06:15)
[2017-05-18] MEDS ORDERED: ONDANSETRON HCL 4 MG TABLET PO PRN (06:15)
[2017-05-18] MEDS ORDERED: CloNIDine HCL 0.1 MG TABLET PO PRN (06:15)
[2017-05-18] MEDS ORDERED: ACETAMINOPHEN 325 MG TABLET PO PRN (06:15)
[2017-05-18] MEDS: LORazepam 2 MG TABLET PO PRN (11:18)
[2017-05-18] MEDS: OLANZapine 10 MG TABLET PO SCH (20:58)
[2017-05-19] MEDS: LORazepam 2 MG TABLET PO PRN (07:58)
[2017-05-19 16:00] VITALS: BP 115/68
[2017-05-19] MEDS: OLANZapine 10 MG TABLET PO SCH (20:28)
[2017-05-20 07:14] VITALS: BP 112/70
[2017-05-20] MEDS: LORazepam 2 MG TABLET PO PRN ×3 (08:52→20:20)
[2017-05-20 16:20] VITALS: BP 110/76
[2017-05-20] MEDS: PALIPERIDONE PALMITATE 234 MG/1.5 ML SYRINGE IM SCH (20:27)
[2017-05-20] MEDS: OLANZapine 10 MG TABLET PO SCH (20:27)
[2017-05-21 05:37] VITALS: BP 137/76
[2017-05-21] MEDS: LORazepam 2 MG TABLET PO PRN ×3 (05:38→17:03)
[2017-05-21] MEDS: PALIPERIDONE PALMITATE 234 MG/1.5 ML SYRINGE IM SCH (10:11)
[2017-05-21] MEDS: NICOTINE 21 MG/24 HOUR PATCH TD SCH (10:11)
[2017-05-21 16:06] VITALS: BP 127/72
[2017-05-21] MEDS: OLANZapine 10 MG TABLET PO SCH (21:00)
[2017-05-22 05:46] VITALS: BP 118/77
[2017-05-22] MEDS: LORazepam 2 MG TABLET PO PRN ×3 (06:15→17:45)
[2017-05-22 08:06] VITALS: BP 106/62
[2017-05-22] MEDS: NICOTINE 21 MG/24 HOUR PATCH TD SCH (08:30)
[2017-05-22 16:00] VITALS: BP 118/75
[2017-05-22] MEDS: OLANZapine 10 MG TABLET PO SCH (20:41)
[2017-05-22] MEDS: ZOLPIDEM TARTRATE 10 MG TABLET PO PRN (20:41)
[2017-05-23 06:32] VITALS: BP 113/78
[2017-05-23] MEDS: LORazepam 2 MG TABLET PO PRN ×3 (08:30→20:22)
[2017-05-23] MEDS: NICOTINE 21 MG/24 HOUR PATCH TD SCH (08:30)
[2017-05-23 08:37] VITALS: BP 108/64
[2017-05-23 16:41] VITALS: BP 128/72
[2017-05-23] MEDS: OLANZapine 10 MG TABLET PO SCH (20:22)
[2017-05-23] MEDS: ZOLPIDEM TARTRATE 10 MG TABLET PO PRN (20:22)
[2017-05-24 01:22] VITALS: BP 109/60
[2017-05-24] MEDS: NICOTINE 21 MG/24 HOUR PATCH TD SCH (08:24)
[2017-05-24 08:25] VITALS: BP 112/64
[2017-05-24] MEDS: LORazepam 2 MG TABLET PO PRN (08:25)
[2017-05-24] MEDS ORDERED: OLAN20TA20 PO (14:33)
== END 2017-05-24 15:27 | disposition home or self-care (01) | DRG 885 ==
LOC: EMS 08:27 → B3A 13:26
PROVIDERS: ADMIT Psychiatry & Neurology Psychiatry; ATTEND Psychiatry & Neurology Psychiatry
DX: F25.9 Schizoaffective disorder, unspecified (principal); B18.2 Chronic viral hepatitis C; F15.10 Other stimulant abuse, uncomplicated; F12.90 Cannabis use, unspecified, uncomplicated; F17.200 Nicotine dependence, unspecified, uncomplicated; G47.00 Insomnia, unspecified; J44.9 Chronic obstructive pulmonary disease, unspecified; K21.9 Gastro-esophageal reflux disease without esophagitis; K59.00 Constipation, unspecified; M19.90 Unspecified osteoarthritis, unspecified site; Z96.641 Presence of right artificial hip joint
CPT/HCPCS: 90471; 96372; 99291; G0480; J1200; J1630; J2060

== ENCOUNTER 2017-05-30 14:04 | Inpatient (IN) | payer MEDICARE, MEDICAID ==
[~2017-05-30] VITALS: Ht 188 cm; Wt 73.3 kg
[~2017-05-30 14:04] MED LIST changes: -NALT50TA6 PO; +OLAN20TA20 PO
[2017-05-30] MEDS ORDERED: ZOLPIDEM TARTRATE 10 MG TABLET PO PRN (18:15)
[2017-05-30 18:25] VITALS: BP 122/81
[2017-05-30 18:43] VITALS: BP 122/81
[2017-05-30 19:25] VITALS: BP 125/82
[2017-05-30 20:25] VITALS: BP 118/72
[2017-05-30 21:25] VITALS: BP 113/66
[2017-05-31 01:26] VITALS: BP 130/85
[2017-05-31 05:25] VITALS: BP 138/85
[2017-05-31] MEDS ORDERED: BENZOCAINE/MENTHOL LOZENGE MM PRN (09:15)
[2017-05-31] MEDS ORDERED: ONDANSETRON HCL 4 MG TABLET PO PRN (09:15)
[2017-05-31] MEDS ORDERED: MAG HYDROX/AL HYDROX/SIMETH ES 30 ML SUSPENSION UDCUP PO PRN (09:15)
[2017-05-31] MEDS ORDERED: ACETAMINOPHEN 325 MG TABLET PO PRN (09:15)
[2017-05-31] MEDS ORDERED: MAGNESIUM HYDROXIDE SUSPENSION 30 ML UDCUP PO PRN (09:15)
[2017-05-31] MEDS ORDERED: LOPERAMIDE HCL 2 MG CAPSULE PO PRN (09:15)
[2017-05-31] MEDS ORDERED: PETROLATUM,WHITE 71 GM JELLY TP PRN (09:15)
[2017-05-31] MEDS ORDERED: CloNIDine HCL 0.1 MG TABLET PO PRN (09:15)
[2017-05-31] MEDS ORDERED: ALBUTEROL SULFATE HFA 90 MCG/PUFF 8 GM INHALER IH PRN (09:15)
[2017-05-31] MEDS ORDERED: BACITRACIN 28.4 GM OINTMENT TP PRN (09:15)
[2017-05-31] MEDS ORDERED: IBUPROFEN 600 MG TABLET PO PRN (09:15)
[2017-05-31] MEDS: NICOTINE 21 MG/24 HOUR PATCH TD SCH (10:20)
[2017-05-31] MEDS: LORazepam 2 MG TABLET PO PRN ×2 (13:43→20:29)
[2017-05-31] MEDS: HALOPERIDOL 5 MG TABLET PO PRN (16:04)
[2017-05-31 17:00] VITALS: BP 113/72
[2017-05-31 17:39] VITALS: BP 129/82
[2017-06-01 00:28] VITALS: BP 101/62
[2017-06-01] MEDS: DOCUSATE SODIUM 100 MG CAPSULE PO SCH (09:00)
[2017-06-01] MEDS: OMEPRAZOLE 20 MG CAPSULE PO SCH (09:00)
[2017-06-01] MEDS: NICOTINE 21 MG/24 HOUR PATCH TD SCH (09:01)
[2017-06-01] MEDS: LORazepam 2 MG TABLET PO PRN ×3 (09:01→19:27)
[2017-06-01 16:00] VITALS: BP 112/80
[2017-06-01 16:27] VITALS: BP 112/80
[2017-06-01] MEDS: DIVALPROEX SODIUM 500 MG DR TABLET PO SCH (17:00)
[2017-06-01] MEDS: HALOPERIDOL 5 MG TABLET PO PRN (19:27)
[2017-06-01] MEDS: OLANZapine 10 MG RAPDIS TABLET PO SCH (21:00)
[2017-06-02 06:31] VITALS: BP 106/65
[2017-06-02] MEDS: OMEPRAZOLE 20 MG CAPSULE PO SCH (09:00)
[2017-06-02] MEDS: DIVALPROEX SODIUM 500 MG DR TABLET PO SCH ×2 (09:00→16:01)
[2017-06-02] MEDS: DOCUSATE SODIUM 100 MG CAPSULE PO SCH (09:00)
[2017-06-02] MEDS: NICOTINE 21 MG/24 HOUR PATCH TD SCH (09:02)
[2017-06-02 10:36] VITALS: BP 106/60
[2017-06-02] MEDS ORDERED: LORazepam 2 MG/ML VIAL ONE (10:39)
[2017-06-02] MEDS ORDERED: HALOPERIDOL LACTATE 5 MG/ML VIAL ONE (10:40)
[2017-06-02] MEDS ORDERED: DiphenhydrAMINE HCL 50 MG/ML VIAL ONE (10:40)
[2017-06-02] MEDS ORDERED: HALOPERIDOL LACTATE 5 MG/ML VIAL IM ONE (10:45)
[2017-06-02] MEDS ORDERED: DiphenhydrAMINE HCL 50 MG/ML VIAL IM ONE (10:45)
[2017-06-02] MEDS ORDERED: LORazepam 2 MG/ML VIAL IM ONE (10:45)
[2017-06-02] MEDS: LORazepam 2 MG TABLET PO PRN (15:58)
[2017-06-02] MEDS: OLANZapine 10 MG RAPDIS TABLET PO SCH (20:18)
[2017-06-03 06:40] VITALS: BP 109/82
[2017-06-03 08:01] VITALS: BP 106/74
[2017-06-03] MEDS: NICOTINE 21 MG/24 HOUR PATCH TD SCH (08:35)
[2017-06-03] MEDS: OMEPRAZOLE 20 MG CAPSULE PO SCH (08:36)
[2017-06-03] MEDS: DIVALPROEX SODIUM 500 MG DR TABLET PO SCH ×2 (08:36→16:40)
[2017-06-03] MEDS: DOCUSATE SODIUM 100 MG CAPSULE PO SCH (08:36)
[2017-06-03] MEDS: LORazepam 2 MG TABLET PO PRN ×3 (08:36→20:30)
[2017-06-03 16:03] VITALS: BP 110/72
[2017-06-03] MEDS: BENZOYL PEROXIDE 5% TP SCH (16:40)
[2017-06-03] MEDS ORDERED: DICLOFENAC SODIUM 1% 100 GM GEL [2GM] TP PRN (19:00)
[2017-06-03] MEDS: OLANZapine 10 MG RAPDIS TABLET PO SCH (20:30)
[2017-06-04] MEDS: DIVALPROEX SODIUM 500 MG DR TABLET PO SCH ×2 (08:48→16:44)
[2017-06-04] MEDS: DOCUSATE SODIUM 100 MG CAPSULE PO SCH (08:48)
[2017-06-04] MEDS: OMEPRAZOLE 20 MG CAPSULE PO SCH (08:48)
[2017-06-04] MEDS: NICOTINE 21 MG/24 HOUR PATCH TD SCH (08:48)
[2017-06-04] MEDS: BENZOYL PEROXIDE 5% TP SCH ×2 (08:49→16:45)
[2017-06-04] MEDS: MAGNESIUM SULFATE 454 GM BOX TP SCH (08:49)
[2017-06-04] MEDS: LORazepam 2 MG TABLET PO PRN ×2 (11:07→16:44)
[2017-06-04] MEDS: OLANZapine 10 MG RAPDIS TABLET PO SCH ×2 (20:46→21:00)
[2017-06-05 08:08] VITALS: BP 114/68
[2017-06-05] MEDS: NICOTINE 21 MG/24 HOUR PATCH TD SCH (08:34)
[2017-06-05] MEDS: DOCUSATE SODIUM 100 MG CAPSULE PO SCH (08:34)
[2017-06-05] MEDS: OMEPRAZOLE 20 MG CAPSULE PO SCH (08:34)
[2017-06-05] MEDS: DIVALPROEX SODIUM 500 MG DR TABLET PO SCH (08:34)
[2017-06-05] MEDS: BENZOYL PEROXIDE 5% TP SCH (08:36)
[2017-06-05] MEDS: MAGNESIUM SULFATE 454 GM BOX TP SCH (08:36)
[2017-06-05] MEDS ORDERED: OLAN10TA6 PO (10:27)
[2017-06-05] MEDS ORDERED: DIVA500T35 PO (10:27)
[2017-06-05] MEDS ORDERED: OMEP20 PO (10:27)
[2017-06-16] MEDS ORDERED: PALIPERIDONE PALMITATE 234 MG/1.5 ML SYRINGE IM ONE (09:00)
== END 2017-06-05 10:30 | disposition home or self-care (01) | DRG 885 ==
LOC: B2S 18:22 → B3A 06-02 21:13
PROVIDERS: ADMIT Psychiatry & Neurology Psychiatry; ATTEND Psychiatry & Neurology Psychiatry
DX: F20.0 Paranoid schizophrenia (principal); B18.2 Chronic viral hepatitis C; Z59.0 Homelessness; F12.90 Cannabis use, unspecified, uncomplicated; F15.10 Other stimulant abuse, uncomplicated; M79.671 Pain in right foot; M25.551 Pain in right hip; M79.672 Pain in left foot; F17.200 Nicotine dependence, unspecified, uncomplicated; G47.00 Insomnia, unspecified; J44.9 Chronic obstructive pulmonary disease, unspecified; K59.00 Constipation, unspecified; M19.90 Unspecified osteoarthritis, unspecified site; Z96.641 Presence of right artificial hip joint; Z72.89 Other problems related to lifestyle; Z71.41 Alcohol abuse counseling and surveillance of alcoholic; Z71.51 Drug abuse counseling and surveillance of drug abuser; Z79.899 Other long term (current) drug therapy
CPT/HCPCS: 87081; J1200; J1630; J2060

== ENCOUNTER 2017-06-14 14:27 | Inpatient (IN) | payer MEDICARE, MEDICAID ==
[~2017-06-14] VITALS: Ht 188 cm; Wt 72.5 kg
[~2017-06-14 14:27] MED LIST changes: +DIVA500T35 PO; +OLAN10TA6 PO; -OLAN20TA20 PO; +OMEP20 PO; -PALI234D IM
[2017-06-14 15:11] LABS: ANION GAP 5 mmol/L (8-16); CALCIUM, TOTAL 8.9 mg/dL (8.8-10.5); CARBON DIOXIDE 28 mmol/L (22-29); CHLORIDE 103 mmol/L (98-107); CREATININE 0.88 mg/dL (0.60-1.30); GLOMERULAR FILTR. RATE CALC > 60 mL/min (>60); POTASSIUM 4.8 mmol/L (3.5-5.1); SODIUM SERUM 136 mmol/L (136-145); UREA NITROGEN, BLOOD 15 mg/dL (7-18)
[2017-06-14 15:13] LABS: BASOPHILS # (AUTO) 0.03 K/uL (0.00-0.20); BASOPHILS % (AUTO) 0.4 % (0.0-2.0); EOSINOPHILS # (AUTO) 0.27 K/uL (0.00-0.70); EOSINOPHILS % (AUTO) 3.65 % (1.0-6.0); HEMATOCRIT 39.4 % (41-53); HEMOGLOBIN 13.2 g/dL (13.5-17.5); LYMPHOCYTES # (AUTO) 1.8 K/uL (1.0-4.8); LYMPHOCYTES % (AUTO) 24.5 % (22.0-44.0); MEAN CORPUSCULAR HEMOGLOBIN 31.4 pg (26.0-34.0); MEAN CORPUSCULAR HGB CONC 33.5 G/dL (31.0-37.0); MEAN CORPUSCULAR VOLUME 94 fL (80-100); MONOCYTES # (AUTO) 0.8 K/uL (0.1-1.0); MONOCYTES % (AUTO) 11.4 % (2.0-9.0); NEUTROPHILS # (AUTO) 4.4 K/uL (1.8-7.7); PLATELET COUNT (AUTO) 328 K/uL (150-450); WHITE BLOOD COUNT (AUTO) 7.3 K/uL (4.5-11.0)
[2017-06-14 15:17] LABS: ALANINE AMINOTRANSFERASE 48 U/L (12-78); ALBUMIN 3.7 g/dL (3.4-5.0); ASPARTATE AMINOTRANSFERASE 28 U/L (15-37); BILIRUBIN,TOTAL 0.4 mg/dL (0.1-1.0); TOTAL PROTEIN, SERUM 7.3 g/dL (6.4-8.2)
[2017-06-14] MEDS ORDERED: HALOPERIDOL LACTATE 5 MG/ML VIAL IM ONE (16:00)
[2017-06-14] MEDS ORDERED: LORazepam 2 MG/ML VIAL IM ONE (16:00)
[2017-06-14] MEDS ORDERED: DiphenhydrAMINE HCL 50 MG/ML VIAL IM ONE (16:00)
[2017-06-14 18:00] VITALS: BP 107/60
[2017-06-14 19:30] VITALS: BP 111/64
[2017-06-14] MEDS ORDERED: INFLUENZA VIRUS VACCINE QVS 2017-18 (3YR+)/PF 60 MCG/0.5 ML SYRINGE IM ONE (19:45)
[2017-06-14] MEDS ORDERED: -PHARMACY VACCINE NOTE- MISC ONE ×2 (19:45)
[2017-06-14 20:00] VITALS: BP 111/64
[2017-06-14 21:00] VITALS: BP 108/65
[2017-06-14 22:00] VITALS: BP 108/68
[2017-06-15] VITALS (7 sets, daily range): BP systolic 107–125; BP diastolic 61–84
[2017-06-15] MEDS ORDERED: ACETAMINOPHEN 325 MG TABLET PO PRN (10:15)
[2017-06-15] MEDS ORDERED: BENZOCAINE/MENTHOL LOZENGE MM PRN (10:15)
[2017-06-15] MEDS ORDERED: ONDANSETRON HCL 4 MG TABLET PO PRN (10:15)
[2017-06-15] MEDS ORDERED: PETROLATUM,WHITE 71 GM JELLY TP PRN (10:15)
[2017-06-15] MEDS ORDERED: IBUPROFEN 600 MG TABLET PO PRN (10:15)
[2017-06-15] MEDS ORDERED: MAG HYDROX/AL HYDROX/SIMETH ES 30 ML SUSPENSION UDCUP PO PRN (10:15)
[2017-06-15] MEDS ORDERED: BACITRACIN 28.4 GM OINTMENT TP PRN (10:15)
[2017-06-15] MEDS ORDERED: LOPERAMIDE HCL 2 MG CAPSULE PO PRN (10:15)
[2017-06-15] MEDS ORDERED: ALBUTEROL SULFATE HFA 90 MCG/PUFF 8 GM INHALER IH PRN (10:15)
[2017-06-15] MEDS ORDERED: CloNIDine HCL 0.1 MG TABLET PO PRN (10:15)
[2017-06-15] MEDS ORDERED: MAGNESIUM HYDROXIDE SUSPENSION 30 ML UDCUP PO PRN (10:15)
[2017-06-15] MEDS: LORazepam 2 MG TABLET PO PRN ×2 (11:31→16:30)
[2017-06-15] MEDS: HALOPERIDOL 5 MG TABLET PO PRN (16:30)
[2017-06-15] MEDS: OLANZapine 10 MG RAPDIS TABLET PO SCH (20:41)
[2017-06-15] MEDS: ZOLPIDEM TARTRATE 10 MG TABLET PO PRN (20:42)
[2017-06-16 07:02] VITALS: BP 119/76
[2017-06-16] MEDS: OMEPRAZOLE 20 MG CAPSULE PO SCH (08:28)
[2017-06-16] MEDS: DIVALPROEX SODIUM 500 MG DR TABLET PO SCH ×2 (08:28→16:25)
[2017-06-16] MEDS: LORazepam 2 MG TABLET PO PRN ×2 (08:28→16:26)
[2017-06-16] MEDS: DOCUSATE SODIUM 100 MG CAPSULE PO SCH (08:28)
[2017-06-16] MEDS ORDERED: PALIPERIDONE PALMITATE 234 MG/1.5 ML SYRINGE IM SCH (09:00)
[2017-06-16 09:09] VITALS: BP 115/74
[2017-06-16] MEDS: NICOTINE 21 MG/24 HOUR PATCH TD SCH (13:33)
[2017-06-16 16:00] VITALS: BP 112/71
[2017-06-16] MEDS: HALOPERIDOL 5 MG TABLET PO PRN (16:25)
[2017-06-16] MEDS: OLANZapine 10 MG RAPDIS TABLET PO SCH (20:39)
[2017-06-17 06:38] VITALS: BP 119/75
[2017-06-17 06:39] VITALS: BP 119/75
[2017-06-17] MEDS: LORazepam 2 MG TABLET PO PRN ×3 (07:43→16:27)
[2017-06-17] MEDS: NICOTINE 21 MG/24 HOUR PATCH TD SCH (08:01)
[2017-06-17] MEDS: MULTIVITAMINS WITH MINERALS, THERAPEUTIC TABLET PO SCH (08:01)
[2017-06-17] MEDS: DIVALPROEX SODIUM 500 MG DR TABLET PO SCH ×2 (08:01→16:12)
[2017-06-17] MEDS: OMEPRAZOLE 20 MG CAPSULE PO SCH (08:01)
[2017-06-17] MEDS: DOCUSATE SODIUM 100 MG CAPSULE PO SCH (08:01)
[2017-06-17 08:06] VITALS: BP 118/70
[2017-06-17 08:09] VITALS: BP 118/70
[2017-06-17 16:18] VITALS: BP 106/65
[2017-06-17] MEDS: ZOLPIDEM TARTRATE 10 MG TABLET PO PRN (20:27)
[2017-06-17] MEDS: OLANZapine 10 MG RAPDIS TABLET PO SCH (20:27)
[2017-06-18 06:52] VITALS: BP 121/69
[2017-06-18 07:00] VITALS: BP 110/67
[2017-06-18 08:41] VITALS: BP 114/66
[2017-06-18] MEDS: MULTIVITAMINS WITH MINERALS, THERAPEUTIC TABLET PO SCH (08:43)
[2017-06-18] MEDS: LORazepam 2 MG TABLET PO PRN ×2 (08:43→13:15)
[2017-06-18] MEDS: OMEPRAZOLE 20 MG CAPSULE PO SCH (08:43)
[2017-06-18] MEDS: DIVALPROEX SODIUM 500 MG DR TABLET PO SCH ×2 (08:43→17:04)
[2017-06-18] MEDS: NICOTINE 21 MG/24 HOUR PATCH TD SCH (08:43)
[2017-06-18] MEDS: DOCUSATE SODIUM 100 MG CAPSULE PO SCH (08:43)
[2017-06-18 11:57] VITALS: BP 104/69
[2017-06-18 16:00] VITALS: BP 111/78
[2017-06-18] MEDS: OLANZapine 10 MG RAPDIS TABLET PO SCH (20:42)
[2017-06-19 01:04] VITALS: BP 116/68
[2017-06-19 06:37] VITALS: BP 102/61
[2017-06-19 08:39] VITALS: BP 109/63
[2017-06-19] MEDS: NICOTINE 21 MG/24 HOUR PATCH TD SCH (08:46)
[2017-06-19] MEDS: DIVALPROEX SODIUM 500 MG DR TABLET PO SCH ×2 (08:46→16:55)
[2017-06-19] MEDS: MULTIVITAMINS WITH MINERALS, THERAPEUTIC TABLET PO SCH (08:46)
[2017-06-19] MEDS: OMEPRAZOLE 20 MG CAPSULE PO SCH (08:46)
[2017-06-19] MEDS: DOCUSATE SODIUM 100 MG CAPSULE PO SCH (08:46)
[2017-06-19] MEDS: LORazepam 2 MG TABLET PO PRN ×2 (08:47→14:23)
[2017-06-19 09:16] VITALS: BP 111/69
[2017-06-19 14:26] VITALS: BP 112/73
[2017-06-19 16:00] VITALS: BP 111/69
[2017-06-19] MEDS: OLANZapine 10 MG RAPDIS TABLET PO SCH (20:34)
[2017-06-20 06:36] VITALS: BP 120/80
[2017-06-20 08:13] VITALS: BP 106/61
[2017-06-20] MEDS: DOCUSATE SODIUM 100 MG CAPSULE PO SCH (08:25)
[2017-06-20] MEDS: MULTIVITAMINS WITH MINERALS, THERAPEUTIC TABLET PO SCH (08:25)
[2017-06-20] MEDS: DIVALPROEX SODIUM 500 MG DR TABLET PO SCH ×2 (08:26→17:16)
[2017-06-20] MEDS: OMEPRAZOLE 20 MG CAPSULE PO SCH (08:26)
[2017-06-20] MEDS: NICOTINE 21 MG/24 HOUR PATCH TD SCH (08:26)
[2017-06-20] MEDS: LORazepam 2 MG TABLET PO PRN ×2 (08:32→15:00)
[2017-06-20 16:00] VITALS: BP 112/67
[2017-06-20] MEDS: OLANZapine 10 MG RAPDIS TABLET PO SCH (20:02)
[2017-06-21 06:27] VITALS: BP 124/79
[2017-06-21 06:46] VITALS: BP 118/79
[2017-06-21 08:25] VITALS: BP 106/67
[2017-06-21] MEDS: NICOTINE 21 MG/24 HOUR PATCH TD SCH (09:33)
[2017-06-21] MEDS: DIVALPROEX SODIUM 500 MG DR TABLET PO SCH ×2 (09:33→16:14)
[2017-06-21] MEDS: MULTIVITAMINS WITH MINERALS, THERAPEUTIC TABLET PO SCH (09:33)
[2017-06-21] MEDS: OMEPRAZOLE 20 MG CAPSULE PO SCH (09:33)
[2017-06-21] MEDS: DOCUSATE SODIUM 100 MG CAPSULE PO SCH (09:33)
[2017-06-21] MEDS: LORazepam 2 MG TABLET PO PRN ×3 (11:43→20:56)
[2017-06-21 16:00] VITALS: BP 123/69
[2017-06-21] MEDS: OLANZapine 10 MG RAPDIS TABLET PO SCH (20:56)
[2017-06-21] MEDS: ZOLPIDEM TARTRATE 10 MG TABLET PO PRN (20:56)
[2017-06-22 07:08] VITALS: BP 100/63
[2017-06-22 08:18] VITALS: BP 109/68
[2017-06-22] MEDS: OMEPRAZOLE 20 MG CAPSULE PO SCH (09:44)
[2017-06-22] MEDS: MULTIVITAMINS WITH MINERALS, THERAPEUTIC TABLET PO SCH (09:44)
[2017-06-22] MEDS: NICOTINE 21 MG/24 HOUR PATCH TD SCH (09:44)
[2017-06-22] MEDS: DIVALPROEX SODIUM 500 MG DR TABLET PO SCH ×2 (09:44→16:32)
[2017-06-22] MEDS: DOCUSATE SODIUM 100 MG CAPSULE PO SCH (09:44)
[2017-06-22] MEDS: LORazepam 2 MG TABLET PO PRN ×3 (10:05→20:33)
[2017-06-22 16:00] VITALS: BP 109/70
[2017-06-22] MEDS: ZOLPIDEM TARTRATE 10 MG TABLET PO PRN (20:33)
[2017-06-22] MEDS: OLANZapine 10 MG RAPDIS TABLET PO SCH (20:33)
[2017-06-23 06:55] VITALS: BP 109/69
[2017-06-23 08:11] VITALS: BP 103/59
[2017-06-23] MEDS: DIVALPROEX SODIUM 500 MG DR TABLET PO SCH (08:27)
[2017-06-23] MEDS: NICOTINE 21 MG/24 HOUR PATCH TD SCH (08:27)
[2017-06-23] MEDS: OMEPRAZOLE 20 MG CAPSULE PO SCH (08:27)
[2017-06-23] MEDS: MULTIVITAMINS WITH MINERALS, THERAPEUTIC TABLET PO SCH (08:27)
[2017-06-23] MEDS: DOCUSATE SODIUM 100 MG CAPSULE PO SCH (08:27)
[2017-06-23] MEDS: LORazepam 2 MG TABLET PO PRN (08:51)
[2017-06-23] MEDS ORDERED: OMEP20 PO (09:05)
== END 2017-06-23 11:15 | disposition home or self-care (01) | DRG 885 ==
LOC: EMS 14:28 → B3A 18:39
PROVIDERS: ADMIT Psychiatry & Neurology Psychiatry; ATTEND Psychiatry & Neurology Psychiatry
DX: F25.9 Schizoaffective disorder, unspecified (principal); F22 Delusional disorders; B18.2 Chronic viral hepatitis C; F10.10 Alcohol abuse, uncomplicated; Z71.6 Tobacco abuse counseling; Z71.41 Alcohol abuse counseling and surveillance of alcoholic; F12.10 Cannabis abuse, uncomplicated; Z71.51 Drug abuse counseling and surveillance of drug abuser; F15.10 Other stimulant abuse, uncomplicated; F17.200 Nicotine dependence, unspecified, uncomplicated; G47.00 Insomnia, unspecified; J44.9 Chronic obstructive pulmonary disease, unspecified; K21.9 Gastro-esophageal reflux disease without esophagitis; K59.00 Constipation, unspecified; M19.90 Unspecified osteoarthritis, unspecified site; Z59.0 Homelessness; Z96.641 Presence of right artificial hip joint; Z28.21 Immunization not carried out because of patient refusal
CPT/HCPCS: 87081; 96372; 99285; G0480; J1200; J1630; J2060

== ENCOUNTER 2017-07-27 16:58 | Emergency (ER) | payer MEDICARE, MEDICAID ==
[~2017-07-27] VITALS: Ht 188 cm; Wt 71.4 kg
[2017-07-27] MEDS ORDERED: LORA1TAB3 PO (17:15)
[2017-07-27 17:23] LABS: BASOPHILS # (AUTO) 0.03 K/uL (0.00-0.20); BASOPHILS % (AUTO) 0.4 % (0.0-2.0); EOSINOPHILS # (AUTO) 0.18 K/uL (0.00-0.70); HEMATOCRIT 36.2 % (41-53); HEMOGLOBIN 12.3 g/dL (13.5-17.5); LYMPHOCYTES # (AUTO) 1.9 K/uL (1.0-4.8); LYMPHOCYTES % (AUTO) 24.6 % (22.0-44.0); MEAN CORPUSCULAR HEMOGLOBIN 32.2 pg (26.0-34.0); MEAN CORPUSCULAR VOLUME 95 fL (80-100); MONOCYTES # (AUTO) 0.8 K/uL (0.1-1.0); MONOCYTES % (AUTO) 10.8 % (2.0-9.0); NEUTROPHILS # (AUTO) 4.6 K/uL (1.8-7.7); NEUTROPHILS % (AUTO) 61.8 % (40.0-70.0); PLATELET COUNT (AUTO) 305 K/uL (150-450); RED BLOOD CELL COUNT(AUTO) 3.82 MIL/uL (4.50-5.90); RED CELL DISTRIBUTION WIDTH 14.4 % (11.5-14.5); WHITE BLOOD COUNT (AUTO) 7.5 K/uL (4.5-11.0)
[2017-07-27 17:37] LABS: ANION GAP 7 mmol/L (8-16); CALCIUM, TOTAL 8.9 mg/dL (8.8-10.5); CARBON DIOXIDE 28 mmol/L (22-29); CHLORIDE 106 mmol/L (98-107); CREATININE 1.06 mg/dL (0.60-1.30); GLOMERULAR FILTR. RATE CALC > 60 mL/min (>60); SODIUM SERUM 141 mmol/L (136-145); UREA NITROGEN, BLOOD 13 mg/dL (7-18)
[2017-07-27 17:44] LABS: ALANINE AMINOTRANSFERASE 58 U/L (12-78); ALBUMIN 3.4 g/dL (3.4-5.0); ASPARTATE AMINOTRANSFERASE 37 U/L (15-37); BILIRUBIN,TOTAL 0.3 mg/dL (0.1-1.0); TOTAL PROTEIN, SERUM 6.9 g/dL (6.4-8.2); VALPROIC ACID < 3 mcg/mL (50-100)
[2017-07-27] MEDS ORDERED: LORazepam 2 MG TABLET PO PRN (18:30)
[2017-07-27] MEDS ORDERED: ZOLPIDEM TARTRATE 10 MG TABLET PO PRN (18:30)
[2017-07-27] MEDS ORDERED: HALOPERIDOL 5 MG TABLET PO PRN (18:30)
[2017-07-27 18:31] VITALS: BP 133/81
== END 2017-07-27 19:41 | disposition home or self-care (01) ==
LOC: EMS 17:01 → B3A 18:49 → UNDOADMIN 18:49
DX: F25.9 Schizoaffective disorder, unspecified (principal); F41.9 Anxiety disorder, unspecified; F17.210 Nicotine dependence, cigarettes, uncomplicated
CPT/HCPCS: 36415; 80053; 80164; 85025; 99284; G0480

== ENCOUNTER 2017-08-10 13:58 | Inpatient (IN) | payer MEDICARE, MEDICAID ==
[~2017-08-10] VITALS: Ht 188 cm; Wt 73.5 kg
[~2017-08-10 13:58] MED LIST changes: +LORA1TAB3 PO
[2017-08-10] MEDS ORDERED: ZOLPIDEM TARTRATE 10 MG TABLET PO PRN (16:00)
[2017-08-10] MEDS ORDERED: HALOPERIDOL 5 MG TABLET PO PRN (16:00)
[2017-08-10 16:19] VITALS: BP 107/74
[2017-08-10] MEDS: DIVALPROEX SODIUM 500 MG DR TABLET PO SCH (16:27)
[2017-08-10] MEDS ORDERED: PALI234D IM (16:30)
[2017-08-10 16:36] VITALS: BP 135/86
[2017-08-10] MEDS ORDERED: INFLUENZA VIRUS VACCINE QVS 2017-18 (3YR+)/PF 60 MCG/0.5 ML SYRINGE IM ONE (17:30)
[2017-08-10] MEDS ORDERED: MAG HYDROX/AL HYDROX/SIMETH ES 30 ML SUSPENSION UDCUP PO PRN (19:30)
[2017-08-10] MEDS ORDERED: ONDANSETRON HCL 4 MG TABLET PO PRN (19:30)
[2017-08-10] MEDS ORDERED: BENZOCAINE/MENTHOL LOZENGE MM PRN (19:30)
[2017-08-10] MEDS ORDERED: IBUPROFEN 600 MG TABLET PO PRN (19:30)
[2017-08-10] MEDS ORDERED: CloNIDine HCL 0.1 MG TABLET PO PRN (19:30)
[2017-08-10] MEDS ORDERED: MAGNESIUM HYDROXIDE SUSPENSION 30 ML UDCUP PO PRN (19:30)
[2017-08-10] MEDS ORDERED: LOPERAMIDE HCL 2 MG CAPSULE PO PRN (19:30)
[2017-08-10] MEDS ORDERED: BACITRACIN 28.4 GM OINTMENT TP PRN (19:30)
[2017-08-10] MEDS ORDERED: ALBUTEROL SULFATE HFA 90 MCG/PUFF 8 GM INHALER IH PRN (19:30)
[2017-08-10] MEDS ORDERED: ACETAMINOPHEN 325 MG TABLET PO PRN (19:30)
[2017-08-10] MEDS ORDERED: PETROLATUM,WHITE 71 GM JELLY TP PRN (19:30)
[2017-08-11] MEDS: OLANZapine 10 MG RAPDIS TABLET PO SCH (09:00)
[2017-08-11] MEDS: DOCUSATE SODIUM 100 MG CAPSULE PO SCH (09:00)
[2017-08-11] MEDS: NICOTINE 21 MG/24 HOUR PATCH TD SCH (09:00)
[2017-08-11] MEDS ORDERED: OMEPRAZOLE 20 MG CAPSULE PO SCH (09:00)
[2017-08-11] MEDS: DIVALPROEX SODIUM 500 MG DR TABLET PO SCH ×2 (09:00→16:02)
[2017-08-11] MEDS: OMEPRAZOLE 20 MG CAPSULE PO SCH (09:00)
[2017-08-11] MEDS: LORazepam 2 MG TABLET PO PRN (16:02)
[2017-08-12 08:00] VITALS: BP 102/66
[2017-08-12] MEDS: NICOTINE 21 MG/24 HOUR PATCH TD SCH (09:00)
[2017-08-12] MEDS: DIVALPROEX SODIUM 500 MG DR TABLET PO SCH ×2 (09:00→16:59)
[2017-08-12] MEDS: OMEPRAZOLE 20 MG CAPSULE PO SCH (09:00)
[2017-08-12] MEDS: DOCUSATE SODIUM 100 MG CAPSULE PO SCH (09:00)
[2017-08-12] MEDS: OLANZapine 10 MG RAPDIS TABLET PO SCH (09:00)
[2017-08-12] MEDS: LORazepam 2 MG TABLET PO PRN (13:41)
[2017-08-12 16:00] VITALS: BP 128/74
[2017-08-12] MEDS: SULFAMETHOX/TRIMETH DS 800-160 MG/TABLET PO SCH (16:59)
[2017-08-12] MEDS: MUPIROCIN CALCIUM 2% 15 GM CREAM TP SCH (16:59)
[2017-08-13 01:07] VITALS: BP 120/81
[2017-08-13] MEDS: NICOTINE 21 MG/24 HOUR PATCH TD SCH (10:15)
[2017-08-13] MEDS: MUPIROCIN CALCIUM 2% 15 GM CREAM TP SCH (10:15)
[2017-08-13] MEDS: DIVALPROEX SODIUM 500 MG DR TABLET PO SCH ×2 (10:15→16:45)
[2017-08-13] MEDS: OLANZapine 10 MG RAPDIS TABLET PO SCH (10:16)
[2017-08-13] MEDS: DOCUSATE SODIUM 100 MG CAPSULE PO SCH (10:16)
[2017-08-13] MEDS: OMEPRAZOLE 20 MG CAPSULE PO SCH (10:16)
[2017-08-13] MEDS: SULFAMETHOX/TRIMETH DS 800-160 MG/TABLET PO SCH ×2 (10:16→16:45)
[2017-08-13] MEDS: LORazepam 2 MG TABLET PO PRN (10:21)
[2017-08-14 00:13] VITALS: BP 130/86
[2017-08-14] MEDS: DOCUSATE SODIUM 100 MG CAPSULE PO SCH ×2 (08:41→09:00)
[2017-08-14] MEDS: SULFAMETHOX/TRIMETH DS 800-160 MG/TABLET PO SCH ×2 (08:41→16:06)
[2017-08-14] MEDS: OMEPRAZOLE 20 MG CAPSULE PO SCH ×2 (08:41→09:00)
[2017-08-14] MEDS: NICOTINE 21 MG/24 HOUR PATCH TD SCH ×2 (08:41→09:00)
[2017-08-14] MEDS: MUPIROCIN CALCIUM 2% 15 GM CREAM TP SCH (08:41)
[2017-08-14] MEDS: OLANZapine 10 MG RAPDIS TABLET PO SCH ×2 (08:41→09:00)
[2017-08-14] MEDS: DIVALPROEX SODIUM 500 MG DR TABLET PO SCH ×3 (08:41→16:06)
[2017-08-14] MEDS: LORazepam 2 MG TABLET PO PRN (14:17)
[2017-08-14 16:14] VITALS: BP 114/75
[2017-08-15 02:52] VITALS: BP 109/68
[2017-08-15 08:00] VITALS: BP 114/79
[2017-08-15 08:31] LABS: BASOPHILS # (AUTO) 0.03 K/uL (0.00-0.20); BASOPHILS % (AUTO) 0.4 % (0.0-2.0); EOSINOPHILS # (AUTO) 0.09 K/uL (0.00-0.70); EOSINOPHILS % (AUTO) 1.13 % (1.0-6.0); HEMATOCRIT 48.3 % (41-53); HEMOGLOBIN 15.6 g/dL (13.5-17.5); LYMPHOCYTES # (AUTO) 1.3 K/uL (1.0-4.8); LYMPHOCYTES % (AUTO) 15.1 % (22.0-44.0); MEAN CORPUSCULAR HGB CONC 32.4 G/dL (31.0-37.0); MEAN CORPUSCULAR VOLUME 96 fL (80-100); MONOCYTES # (AUTO) 0.9 K/uL (0.1-1.0); MONOCYTES % (AUTO) 11.4 % (2.0-9.0); NEUTROPHILS % (AUTO) 72.1 % (40.0-70.0); PLATELET COUNT (AUTO) 327 K/uL (150-450); RED BLOOD CELL COUNT(AUTO) 5.05 MIL/uL (4.50-5.90); RED CELL DISTRIBUTION WIDTH 13.6 % (11.5-14.5)
[2017-08-15 08:59] LABS: ALANINE AMINOTRANSFERASE 55 U/L (12-78); ALBUMIN 3.3 g/dL (3.4-5.0); ALKALINE PHOSPHATASE 94 U/L (46-116); ANION GAP 8 mmol/L (8-16); ASPARTATE AMINOTRANSFERASE 38 U/L (15-37); BILIRUBIN,TOTAL 0.5 mg/dL (0.1-1.0); CALCIUM, TOTAL 9.3 mg/dL (8.8-10.5); CARBON DIOXIDE 28 mmol/L (22-29); CHLORIDE 103 mmol/L (98-107); CHOL/HDL RATIO 2.5 (4.2-7.3); CHOLESTEROL 136 mg/dL (131-200); CREATININE 0.97 mg/dL (0.60-1.30); FREE T4 (FREE THYROXINE) 1.18 ng/dL (0.76-1.46); GLOMERULAR FILTR. RATE CALC > 60 mL/min (>60); GLUCOSE,RANDOM 81 mg/dL (70-110); HDL CHOLESTEROL 55 mg/dL (40-60); LDL CHOL (CALC.) 75 mg/dL (0-130); POTASSIUM 5.3 mmol/L (3.5-5.1); SODIUM SERUM 139 mmol/L (136-145); THYROID STIMULATING HORMONE 1.66 uIU/mL (0.36-3.74); TOTAL PROTEIN, SERUM 7.6 g/dL (6.4-8.2); TRIGLYCERIDES 31 mg/dL (15-150); UREA NITROGEN, BLOOD 21 mg/dL (7-18); VALPROIC ACID 55 mcg/mL (50-100)
[2017-08-15] MEDS: OLANZapine 10 MG RAPDIS TABLET PO SCH (09:00)
[2017-08-15] MEDS: OMEPRAZOLE 20 MG CAPSULE PO SCH (09:00)
[2017-08-15] MEDS: NICOTINE 21 MG/24 HOUR PATCH TD SCH (09:00)
[2017-08-15] MEDS: DOCUSATE SODIUM 100 MG CAPSULE PO SCH (09:00)
[2017-08-15] MEDS: DIVALPROEX SODIUM 500 MG DR TABLET PO SCH ×2 (09:00→16:40)
[2017-08-15 09:12] LABS: HEMOGLOBIN A1C 5.2 % (4.5-6.2)
[2017-08-15] MEDS: SULFAMETHOX/TRIMETH DS 800-160 MG/TABLET PO SCH ×2 (09:36→16:40)
[2017-08-15] MEDS: MUPIROCIN CALCIUM 2% 15 GM CREAM TP SCH (09:56)
[2017-08-15] MEDS: LORazepam 2 MG TABLET PO PRN ×2 (13:34→17:34)
[2017-08-15] MEDS: DOXYCYCLINE 100 MG CAPSULE PO SCH (16:40)
[2017-08-15 17:05] VITALS: BP 106/70
[2017-08-16 01:45] VITALS: BP 105/64
[2017-08-16] MEDS: LORazepam 2 MG TABLET PO PRN ×2 (01:50→14:34)
[2017-08-16] MEDS: DIVALPROEX SODIUM 500 MG DR TABLET PO SCH ×2 (08:55→16:45)
[2017-08-16] MEDS: SULFAMETHOX/TRIMETH DS 800-160 MG/TABLET PO SCH ×2 (08:55→16:45)
[2017-08-16] MEDS: OMEPRAZOLE 20 MG CAPSULE PO SCH (08:55)
[2017-08-16] MEDS: DOXYCYCLINE 100 MG CAPSULE PO SCH ×2 (08:55→16:45)
[2017-08-16] MEDS: DOCUSATE SODIUM 100 MG CAPSULE PO SCH (08:56)
[2017-08-16] MEDS: OLANZapine 10 MG RAPDIS TABLET PO SCH (08:59)
[2017-08-16] MEDS: MUPIROCIN CALCIUM 2% 15 GM CREAM TP SCH (08:59)
[2017-08-16 09:39] VITALS: BP 114/69
[2017-08-16 16:40] VITALS: BP 117/68
[2017-08-17 06:03] VITALS: BP 101/72
[2017-08-17] MEDS: DIVALPROEX SODIUM 500 MG DR TABLET PO SCH ×2 (09:42→16:26)
[2017-08-17] MEDS: SULFAMETHOX/TRIMETH DS 800-160 MG/TABLET PO SCH ×2 (09:42→16:26)
[2017-08-17] MEDS: OMEPRAZOLE 20 MG CAPSULE PO SCH (09:42)
[2017-08-17] MEDS: DOXYCYCLINE 100 MG CAPSULE PO SCH ×2 (09:42→16:26)
[2017-08-17] MEDS: DOCUSATE SODIUM 100 MG CAPSULE PO SCH (09:43)
[2017-08-17] MEDS: OLANZapine 10 MG RAPDIS TABLET PO SCH (09:44)
[2017-08-17] MEDS: MUPIROCIN CALCIUM 2% 15 GM CREAM TP SCH (09:45)
[2017-08-17] MEDS: NICOTINE 21 MG/24 HOUR PATCH TD SCH (09:45)
[2017-08-17] MEDS: LORazepam 2 MG TABLET PO PRN (13:01)
[2017-08-17 16:17] VITALS: BP 111/74
[2017-08-18 00:08] VITALS: BP 110/68
[2017-08-18] MEDS: CLINDAMYCIN HCL 150 MG CAPSULE PO SCH ×3 (04:46→12:18)
[2017-08-18] MEDS ORDERED: LACTOBAC ACID/BULG/BIFID/THERM TABLET PO SCH (09:00)
[2017-08-18] MEDS: SULFAMETHOX/TRIMETH DS 800-160 MG/TABLET PO SCH (09:15)
[2017-08-18] MEDS: OMEPRAZOLE 20 MG CAPSULE PO SCH (09:15)
[2017-08-18] MEDS: DIVALPROEX SODIUM 500 MG DR TABLET PO SCH (09:15)
[2017-08-18] MEDS: DOCUSATE SODIUM 100 MG CAPSULE PO SCH (09:15)
[2017-08-18] MEDS: OLANZapine 10 MG RAPDIS TABLET PO SCH (09:16)
[2017-08-18] MEDS: LORazepam 2 MG TABLET PO PRN (09:18)
[2017-08-18] MEDS: NICOTINE 21 MG/24 HOUR PATCH TD SCH (09:39)
[2017-08-18] MEDS: MUPIROCIN CALCIUM 2% 15 GM CREAM TP SCH (09:39)
[2017-08-18] MEDS ORDERED: CLIN150C9 PO (09:50)
[2017-08-18] MEDS ORDERED: DSS100 PO (09:50)
[2017-08-18] MEDS ORDERED: SULF1TAB42 PO (09:50)
[2017-08-18] MEDS ORDERED: LACT1.5C PO (10:03)
== END 2017-08-18 14:00 | disposition home or self-care (01) | DRG 885 ==
LOC: B2S 15:52
PROVIDERS: ADMIT Psychiatry & Neurology Psychiatry; ATTEND Psychiatry & Neurology Psychiatry
DX: F25.9 Schizoaffective disorder, unspecified (principal); B18.2 Chronic viral hepatitis C; L02.211 Cutaneous abscess of abdominal wall; D64.9 Anemia, unspecified; F17.200 Nicotine dependence, unspecified, uncomplicated; K21.9 Gastro-esophageal reflux disease without esophagitis; J44.9 Chronic obstructive pulmonary disease, unspecified; M19.90 Unspecified osteoarthritis, unspecified site; Z96.641 Presence of right artificial hip joint; F10.10 Alcohol abuse, uncomplicated; G47.00 Insomnia, unspecified; K59.00 Constipation, unspecified; F15.10 Other stimulant abuse, uncomplicated; F12.90 Cannabis use, unspecified, uncomplicated; Z71.6 Tobacco abuse counseling; Z71.51 Drug abuse counseling and surveillance of drug abuser
CPT/HCPCS: 82306; 83036; 84439; 84443; 87070; 87205

== ENCOUNTER 2017-10-17 11:19 | Emergency (ER) | payer MEDICARE, OTHER ==
[~2017-10-17] VITALS: Ht 188 cm; Wt 81.8 kg
[~2017-10-17 11:19] MED LIST changes: +CLIN150C9 PO; +DSS100 PO; +LACT1.5C PO; -LORA1TAB3 PO; +SULF1TAB42 PO
[2017-10-17] MEDS ORDERED: IVERMECTIN 3 MG TABLET PO ONE (12:15)
[2017-10-17] MEDS ORDERED: PIPERONYL BUTOXIDE/PYRETHRINS 120 ML SHAMPOO TP ONE (12:15)
[2017-10-17 12:35] LABS: BASOPHILS % (AUTO) 0.5 % (0.0-2.0); EOSINOPHILS % (AUTO) 0.9 % (1.0-6.0); HEMATOCRIT 37.3 % (41-53); HEMOGLOBIN 12.9 g/dL (13.5-17.5); LYMPHOCYTES # (AUTO) 1.4 K/uL (1.0-4.8); LYMPHOCYTES % (AUTO) 17.4 % (22.0-44.0); MEAN CORPUSCULAR HEMOGLOBIN 31.1 pg (26.0-34.0); MEAN CORPUSCULAR HGB CONC 34.5 G/dL (31.0-37.0); MEAN CORPUSCULAR VOLUME 90 fL (80-100); MONOCYTES # (AUTO) 0.9 K/uL (0.1-1.0); MONOCYTES % (AUTO) 11.4 % (2.0-9.0); NEUTROPHILS # (AUTO) 5.8 K/uL (1.8-7.7); NEUTROPHILS % (AUTO) 69.8 % (40.0-70.0); PLATELET COUNT (AUTO) 339 K/uL (150-450); RED BLOOD CELL COUNT(AUTO) 4.13 MIL/uL (4.50-5.90); RED CELL DISTRIBUTION WIDTH 12.8 % (11.5-14.5)
[2017-10-17 12:43] LABS: ANION GAP 8 mmol/L (8-16); CALCIUM, TOTAL 9.2 mg/dL (8.8-10.5); CARBON DIOXIDE 26 mmol/L (22-29); CHLORIDE 99 mmol/L (98-107); CREATININE 0.85 mg/dL (0.60-1.30); GLOMERULAR FILTR. RATE CALC > 60 mL/min (>60); GLUCOSE,RANDOM 84 mg/dL (70-110); POTASSIUM 5.5 mmol/L (3.5-5.1); SODIUM SERUM 133 mmol/L (136-145); UREA NITROGEN, BLOOD 24 mg/dL (7-18)
[2017-10-17 12:49] LABS: ALANINE AMINOTRANSFERASE 51 U/L (12-78); ALBUMIN 3.3 g/dL (3.4-5.0); ALKALINE PHOSPHATASE 91 U/L (46-116); ASPARTATE AMINOTRANSFERASE 52 U/L (15-37); BILIRUBIN,TOTAL 0.6 mg/dL (0.1-1.0)
[2017-10-17] MEDS: PERMETHRIN 5% 60 GM CREAM TP ONE ×2 (12:56→13:25)
[2017-10-17] MEDS ORDERED: HALOPERIDOL 5 MG TABLET PO PRN (13:45)
[2017-10-17] MEDS ORDERED: LORazepam 2 MG TABLET PO PRN (13:45)
[2017-10-17] MEDS ORDERED: ZOLPIDEM TARTRATE 10 MG TABLET PO PRN (13:45)
[2017-10-17 14:11] LABS: AMPHET/METH SCREEN,URINE POSITIVE (NEGATIVE); BARBITURATE SCREEN, URINE NEGATIVE (NEGATIVE); BENZODIAZEPINES SCREEN,URINE NEGATIVE (NEGATIVE); CANNABINOID SCREEN,URINE NEGATIVE (NEGATIVE); COCAINE SCREEN,URINE NEGATIVE (NEGATIVE); METHADONE SCREEN, URINE NEGATIVE (NEGATIVE); OPIATE SCREEN,URINE NEGATIVE (NEGATIVE)
[2017-10-17 14:12] LABS: PHENCYCLIDINE SCREEN,URINE NEGATIVE (NEGATIVE)
[2017-10-17] MEDS ORDERED: HALOPERIDOL 5 MG TABLET PO ONE (14:15)
[2017-10-17] MEDS ORDERED: LORazepam 1 MG TABLET PO ONE (14:15)
[2017-10-17 15:30] VITALS: BP 139/79
[2017-10-17] MEDS ORDERED: RisperiDONE 2 MG TABLET PO SCH (21:00)
[2017-10-17] MEDS ORDERED: DIVALPROEX SODIUM 500 MG DR TABLET PO SCH (21:00)
== END 2017-10-17 17:38 | disposition other institution (70) ==
LOC: EMS 11:22
DX: F25.9 Schizoaffective disorder, unspecified (principal); F41.9 Anxiety disorder, unspecified; F17.200 Nicotine dependence, unspecified, uncomplicated
CPT/HCPCS: 36415; 80053; 80307; 85025; 99285; G0480

== ENCOUNTER 2018-04-25 16:22 | Emergency (ER) | payer MEDICARE, OTHER ==
[~2018-04-25] VITALS: Ht 188 cm; Wt 79.5 kg
[2018-04-25 17:15] LABS: BASOPHILS % (AUTO) 0.6 % (0.0-2.0); EOSINOPHILS % (AUTO) 2.1 % (1.0-6.0); HEMATOCRIT 41.8 % (41-53); HEMOGLOBIN 14.3 g/dL (13.5-17.5); LYMPHOCYTES # (AUTO) 1.6 K/uL (1.0-4.8); LYMPHOCYTES % (AUTO) 24.7 % (22.0-44.0); MEAN CORPUSCULAR HEMOGLOBIN 31.5 pg (26.0-34.0); MEAN CORPUSCULAR HGB CONC 34.1 G/dL (31.0-37.0); MEAN CORPUSCULAR VOLUME 93 fL (80-100); MONOCYTES # (AUTO) 0.8 K/uL (0.1-1.0); MONOCYTES % (AUTO) 12.3 % (2.0-9.0); NEUTROPHILS # (AUTO) 3.9 K/uL (1.8-7.7); NEUTROPHILS % (AUTO) 60.3 % (40.0-70.0); PLATELET COUNT (AUTO) 281 K/uL (150-450); RED BLOOD CELL COUNT(AUTO) 4.52 MIL/uL (4.50-5.90)
[2018-04-25 17:27] LABS: ANION GAP 6 mmol/L (8-16); CARBON DIOXIDE 28 mmol/L (22-29); CHLORIDE 105 mmol/L (98-107); CREATININE 0.86 mg/dL (0.60-1.30); GLOMERULAR FILTR. RATE CALC > 60 mL/min (>60); GLUCOSE,RANDOM 91 mg/dL (70-110); SODIUM SERUM 139 mmol/L (136-145); UREA NITROGEN, BLOOD 11 mg/dL (7-18)
[2018-04-25 17:32] LABS: ALANINE AMINOTRANSFERASE 36 U/L (12-78); ALBUMIN 3.2 g/dL (3.4-5.0); ALKALINE PHOSPHATASE 122 U/L (46-116); ASPARTATE AMINOTRANSFERASE 26 U/L (15-37); BILIRUBIN,TOTAL 0.3 mg/dL (0.1-1.0); TOTAL PROTEIN, SERUM 6.6 g/dL (6.4-8.2)
[2018-04-25 18:53] LABS: APPEARANCE,URINE CLEAR (CLEAR); BILIRUBIN,URINE NEGATIVE (NEGATIVE); GLUCOSE, URINE (UA) NEGATIVE (NEGATIVE); KETONES,URINE NEGATIVE (NEGATIVE); LEUKOCYTE ESTERASE ,URINE NEGATIVE (NEGATIVE); NITRATE,URINE NEGATIVE (NEGATIVE); OCCULT BLOOD,URINE NEGATIVE (NEGATIVE); PH,URINE 5.5 (5.0-8.0); PROTEIN,URINE NEGATIVE (NEGATIVE)
[2018-04-25 18:56] LABS: AMPHET/METH SCREEN,URINE POSITIVE (NEGATIVE); BARBITURATE SCREEN, URINE NEGATIVE (NEGATIVE); BENZODIAZEPINES SCREEN,URINE NEGATIVE (NEGATIVE); CANNABINOID SCREEN,URINE POSITIVE (NEGATIVE); COCAINE SCREEN,URINE NEGATIVE (NEGATIVE); METHADONE SCREEN, URINE NEGATIVE (NEGATIVE); OPIATE SCREEN,URINE NEGATIVE (NEGATIVE)
[2018-04-25 18:58] LABS: PHENCYCLIDINE SCREEN,URINE NEGATIVE (NEGATIVE)
[2018-04-25 19:17] VITALS: BP 126/79
[2018-04-25] MEDS ORDERED: LORazepam 1 MG TABLET PO ONE (19:45)
== END 2018-04-25 19:39 | disposition home or self-care (01) ==
LOC: EMS 16:25
DX: F41.9 Anxiety disorder, unspecified (principal); F32.9 Major depressive disorder, single episode, unspecified; F15.10 Other stimulant abuse, uncomplicated; F12.10 Cannabis abuse, uncomplicated; F20.9 Schizophrenia, unspecified; F17.210 Nicotine dependence, cigarettes, uncomplicated; G89.29 Other chronic pain; Z96.642 Presence of left artificial hip joint
CPT/HCPCS: 36415; 80053; 80307; 81003; 85025; 99284; 99406; G0480

== ENCOUNTER 2021-04-01 12:20 | Inpatient (IN) | payer MEDICARE, MEDICAID ==
[~2021-04-01] VITALS: Ht 185.4 cm; Wt 79.8 kg
[2021-04-01 15:25] LABS: AMPHET/METH SCREEN,URINE NEGATIVE (NEGATIVE); BARBITURATE SCREEN, URINE NEGATIVE (NEGATIVE); BENZODIAZEPINES SCREEN,URINE NEGATIVE (NEGATIVE); CANNABINOID SCREEN,URINE POSITIVE (NEGATIVE); COCAINE SCREEN,URINE NEGATIVE (NEGATIVE); METHADONE SCREEN, URINE NEGATIVE (NEGATIVE); OPIATE SCREEN,URINE NEGATIVE (NEGATIVE)
[2021-04-01 15:28] LABS: PHENCYCLIDINE SCREEN,URINE NEGATIVE (NEGATIVE)
[2021-04-01 15:32] LABS: COVID AG,FIA SOURCE NASOPHARYNGEAL
[2021-04-01 15:33] LABS: BASOPHILS % (AUTO) 0.5 % (0.0-2.0); EOSINOPHILS % (AUTO) 0.5 % (1.0-6.0); HEMATOCRIT 43.5 % (41-53); HEMOGLOBIN 14.3 g/dL (13.5-17.5); LYMPHOCYTES # (AUTO) 1.5 K/uL (1.0-4.8); LYMPHOCYTES % (AUTO) 19.5 % (22.0-44.0); MEAN CORPUSCULAR HEMOGLOBIN 30.4 pg (26.0-34.0); MEAN CORPUSCULAR HGB CONC 32.9 G/dL (31.0-37.0); MEAN CORPUSCULAR VOLUME 92 fL (80-100); MONOCYTES # (AUTO) 0.7 K/uL (0.1-1.0); MONOCYTES % (AUTO) 8.4 % (2.0-9.0); NEUTROPHILS # (AUTO) 5.5 K/uL (1.8-7.7); NEUTROPHILS % (AUTO) 71.1 % (40.0-70.0); PLATELET COUNT (AUTO) 392 K/uL (150-450); RED BLOOD CELL COUNT(AUTO) 4.71 MIL/uL (4.50-5.90); RED CELL DISTRIBUTION WIDTH 15.3 % (11.5-14.5)
[2021-04-01 15:45] LABS: ANION GAP 9 mmol/L (8-16); CALCIUM, TOTAL 8.9 mg/dL (8.8-10.5); CARBON DIOXIDE 25 mmol/L (22-29); CHLORIDE 105 mmol/L (98-107); GLOMERULAR FILTR. RATE CALC > 60 mL/min (>60); GLUCOSE,RANDOM 101 mg/dL (70-110); POTASSIUM 4.9 mmol/L (3.5-5.1); SODIUM SERUM 139 mmol/L (136-145); UREA NITROGEN, BLOOD 8 mg/dL (7-18)
[2021-04-01 15:50] LABS: ALANINE AMINOTRANSFERASE 57 U/L (12-78); ALBUMIN 3.5 g/dL (3.4-5.0); ALKALINE PHOSPHATASE 146 U/L (46-116); ASPARTATE AMINOTRANSFERASE 49 U/L (15-37); BILIRUBIN,TOTAL 0.3 mg/dL (0.1-1.0); TOTAL PROTEIN, SERUM 7.8 g/dL (6.4-8.2)
[2021-04-01 15:52] LABS: ACETAMINOPHEN < 2 mcg/mL (10-30)
[2021-04-01 16:13] LABS: SALICYLATE 4.1 mg/dL (2.8-20.0)
[2021-04-01] MEDS ORDERED: HALOPERIDOL 5 MG TABLET PO PRN (17:45)
[2021-04-01 19:00] VITALS: BP 139/79
[2021-04-01] MEDS: ZOLPIDEM TARTRATE 10 MG TABLET PO PRN (21:59)
[2021-04-02] MEDS ORDERED: MAGNESIUM HYDROXIDE SUSPENSION 30 ML UDCUP PO PRN (06:45)
[2021-04-02] MEDS ORDERED: PETROLATUM,WHITE 28 GM JELLY TP PRN (06:45)
[2021-04-02] MEDS ORDERED: CloNIDine HCL 0.1 MG TABLET PO PRN (06:45)
[2021-04-02] MEDS ORDERED: MAG HYDROX/AL HYDROX/SIMETH ES 30 ML SUSPENSION UDCUP PO PRN (06:45)
[2021-04-02] MEDS ORDERED: ONDANSETRON HCL 4 MG TABLET PO PRN (06:45)
[2021-04-02] MEDS ORDERED: GuaiFENesin/D-METHORPHAN [SUGAR-FREE] 200-20MG/10 ML SYRUP UDCUP PO PRN (06:45)
[2021-04-02] MEDS ORDERED: IBUPROFEN 400 MG TABLET PO PRN (06:45)
[2021-04-02] MEDS ORDERED: DOCUSATE SODIUM 100 MG CAPSULE PO PRN (06:45)
[2021-04-02] MEDS ORDERED: NICOTINE 14 MG/24 HOUR PATCH TD PRN (06:45)
[2021-04-02] MEDS ORDERED: ALBUTEROL SULFATE HFA 90 MCG/PUFF 8 GM INHALER IH PRN (06:45)
[2021-04-02] MEDS ORDERED: LOPERAMIDE HCL 2 MG CAPSULE PO PRN (06:45)
[2021-04-02 08:28] VITALS: BP 134/88
[2021-04-02] MEDS: NICOTINE 14 MG/24 HOUR PATCH TD SCH (08:33)
[2021-04-02] MEDS: LORazepam 2 MG TABLET PO PRN ×2 (08:33→14:15)
[2021-04-02 09:43] LABS: CHOL/HDL RATIO 2.4 (4.2-7.3)
[2021-04-02] MEDS ORDERED: BUPRENORPHINE HCL/NALOXONE HCL 2-0.5 MG SUBLINGUAL TABLET SL PRN (15:15)
[2021-04-02] MEDS: ACAMPROSATE CALCIUM 333 MG DR TABLET PO SCH (16:27)
[2021-04-02] MEDS: FERROUS SULFATE 325 MG EC TABLET PO SCH (16:27)
[2021-04-02] MEDS: DOXYCYCLINE HYCLATE 100 MG TABLET PO SCH (16:27)
[2021-04-02 16:28] VITALS: BP 148/92
[2021-04-02] MEDS: RisperiDONE 4 MG TABLET PO SCH (18:34)
[2021-04-02] MEDS: TAMSULOSIN HCL 0.4 MG CAPSULE PO SCH (20:17)
[2021-04-03] MEDS: ACETAMINOPHEN 325 MG TABLET PO PRN ×2 (04:35→19:03)
[2021-04-03] MEDS: LORazepam 2 MG TABLET PO PRN ×4 (04:35→21:37)
[2021-04-03] MEDS: DOXYCYCLINE HYCLATE 100 MG TABLET PO SCH ×2 (08:40→17:30)
[2021-04-03] MEDS: RisperiDONE 4 MG TABLET PO SCH ×2 (08:40→17:30)
[2021-04-03] MEDS: BusPIRone HCL 15 MG TABLET PO SCH ×2 (08:40→17:30)
[2021-04-03] MEDS: ACAMPROSATE CALCIUM 333 MG DR TABLET PO SCH ×3 (08:40→17:30)
[2021-04-03] MEDS: NICOTINE 14 MG/24 HOUR PATCH TD SCH (08:43)
[2021-04-03] MEDS ORDERED: BusPIRone HCL 15 MG TABLET PO SCH (09:00)
[2021-04-03 09:54] VITALS: BP 113/89
[2021-04-03 16:43] VITALS: BP 123/85
[2021-04-03] MEDS: TAMSULOSIN HCL 0.4 MG CAPSULE PO SCH (20:57)
[2021-04-03] MEDS: ZOLPIDEM TARTRATE 10 MG TABLET PO PRN (20:57)
[2021-04-04] MEDS: ACETAMINOPHEN 325 MG TABLET PO PRN (06:48)
[2021-04-04] MEDS: LORazepam 2 MG TABLET PO PRN ×3 (06:48→21:06)
[2021-04-04 06:52] VITALS: BP 110/86
[2021-04-04 08:47] VITALS: BP 120/83
[2021-04-04] MEDS: ACAMPROSATE CALCIUM 333 MG DR TABLET PO SCH ×3 (08:51→17:05)
[2021-04-04] MEDS: DOXYCYCLINE HYCLATE 100 MG TABLET PO SCH ×2 (08:52→17:05)
[2021-04-04] MEDS: RisperiDONE 4 MG TABLET PO SCH ×2 (08:52→17:05)
[2021-04-04] MEDS: BusPIRone HCL 15 MG TABLET PO SCH ×2 (08:52→17:05)
[2021-04-04] MEDS: FERROUS SULFATE 325 MG EC TABLET PO SCH (08:53)
[2021-04-04] MEDS: NICOTINE 14 MG/24 HOUR PATCH TD SCH (08:56)
[2021-04-04] MEDS: BENZTROPINE MESYLATE 1 MG TABLET PO SCH ×2 (11:15→17:08)
[2021-04-04 16:28] VITALS: BP 133/80
[2021-04-04] MEDS: TAMSULOSIN HCL 0.4 MG CAPSULE PO SCH (21:06)
[2021-04-05 08:36] VITALS: BP 119/70
[2021-04-05] MEDS: ACAMPROSATE CALCIUM 333 MG DR TABLET PO SCH ×2 (08:53→12:26)
[2021-04-05] MEDS: BusPIRone HCL 15 MG TABLET PO SCH (08:53)
[2021-04-05] MEDS: BENZTROPINE MESYLATE 1 MG TABLET PO SCH (08:53)
[2021-04-05] MEDS: RisperiDONE 4 MG TABLET PO SCH (08:53)
[2021-04-05] MEDS: DOXYCYCLINE HYCLATE 100 MG TABLET PO SCH (08:55)
[2021-04-05] MEDS: NICOTINE 14 MG/24 HOUR PATCH TD SCH (08:57)
[2021-04-05] MEDS ORDERED: BUSP15 PO (10:33)
[2021-04-05] MEDS ORDERED: BENZ1TAB10 PO (10:33)
[2021-04-05] MEDS ORDERED: RISP4TAB73 PO (10:34)
[2021-04-05] MEDS ORDERED: ACAM333T7 PO (10:46)
[2021-04-05] MEDS ORDERED: FERR-89 PO (10:47)
[2021-04-05] MEDS ORDERED: DOXY-354 PO (10:47)
[2021-04-05] MEDS ORDERED: TAMS-13 PO (10:48)
== END 2021-04-05 15:45 | disposition home or self-care (01) | DRG 885 ==
LOC: EMS 12:25 → 3EX 17:51
PROVIDERS: ADMIT Psychiatry & Neurology Child & Adolescent Psychiatry; ATTEND Psychiatry & Neurology Child & Adolescent Psychiatry
DX: F20.0 Paranoid schizophrenia (principal); F11.20 Opioid dependence, uncomplicated; R45.851 Suicidal ideations; G89.29 Other chronic pain; Z20.822 Contact with and (suspected) exposure to COVID-19; F10.10 Alcohol abuse, uncomplicated; D64.9 Anemia, unspecified; F15.90 Other stimulant use, unspecified, uncomplicated; F17.200 Nicotine dependence, unspecified, uncomplicated; N40.0 Benign prostatic hyperplasia without lower urinary tract symptoms; M25.569 Pain in unspecified knee; F12.10 Cannabis abuse, uncomplicated; F41.9 Anxiety disorder, unspecified
CPT/HCPCS: 80053; 80061; 85025; 99285; G0378; G0480; G0481

== ENCOUNTER 2022-09-21 16:07 | Inpatient (IN) | payer MEDICARE, MEDICAID ==
[~2022-09-21] VITALS: Ht 185.4 cm; Wt 83.1 kg
[~2022-09-21 16:07] MED LIST changes: +ACAM333T7 PO; +BENZ1TAB96 PO; +BUSP15 PO; -CLIN150C9 PO; -DIVA500T35 PO; +DOXY-354 PO; -DSS100 PO; +FERR325T27 PO; -LACT1.5C PO; -OLAN10TA6 PO; -OMEP20 PO; +RISP4TAB73 PO; -SULF1TAB42 PO; +TAMS-13 PO
[2022-09-21] MEDS ORDERED: SERT20OR6 PO (16:56)
[2022-09-21 18:08] LABS: AMPHET/METH SCREEN,URINE POSITIVE (NEGATIVE); BARBITURATE SCREEN, URINE NEGATIVE (NEGATIVE); BENZODIAZEPINES SCREEN,URINE NEGATIVE (NEGATIVE); CANNABINOID SCREEN,URINE POSITIVE (NEGATIVE); COCAINE SCREEN,URINE NEGATIVE (NEGATIVE); METHADONE SCREEN, URINE NEGATIVE (NEGATIVE); OPIATE SCREEN,URINE NEGATIVE (NEGATIVE); PHENCYCLIDINE SCREEN,URINE NEGATIVE (NEGATIVE)
[2022-09-21 18:17] LABS: COVID AG,FIA SOURCE NASOPHARYNGEAL
[2022-09-21] MEDS ORDERED: HALOPERIDOL 5 MG TABLET PO PRN (18:30)
[2022-09-21] MEDS ORDERED: ZOLPIDEM TARTRATE 10 MG TABLET PO PRN (18:30)
[2022-09-22] MEDS ORDERED: PETROLATUM,WHITE 28 GM JELLY TP PRN (04:45)
[2022-09-22] MEDS ORDERED: CloNIDine HCL 0.1 MG TABLET PO PRN (04:45)
[2022-09-22] MEDS ORDERED: BACITRACIN 28 GM OINTMENT TP PRN (04:45)
[2022-09-22] MEDS ORDERED: ACETAMINOPHEN 325 MG TABLET PO PRN (04:45)
[2022-09-22] MEDS ORDERED: MAG HYDROX/AL HYDROX/SIMETH ES 30 ML SUSPENSION UDCUP PO PRN (04:45)
[2022-09-22] MEDS ORDERED: ALBUTEROL SULFATE HFA 90 MCG/PUFF 8 GM INHALER IH PRN (04:45)
[2022-09-22] MEDS ORDERED: ONDANSETRON HCL 4 MG TABLET PO PRN (04:45)
[2022-09-22] MEDS ORDERED: LOPERAMIDE HCL 2 MG CAPSULE PO PRN (04:45)
[2022-09-22] MEDS ORDERED: OMEPRAZOLE 20 MG CAPSULE PO PRN (04:45)
[2022-09-22] MEDS ORDERED: MAGNESIUM HYDROXIDE SUSPENSION 30 ML UDCUP PO PRN (04:45)
[2022-09-22] MEDS ORDERED: IBUPROFEN 600 MG TABLET PO PRN (04:45)
[2022-09-22] MEDS ORDERED: BENZOCAINE/MENTHOL LOZENGE PO PRN (04:45)
[2022-09-22] MEDS ORDERED: DOCUSATE SODIUM 100 MG CAPSULE PO PRN (04:45)
[2022-09-22] MEDS: LORazepam 2 MG TABLET PO PRN (06:32)
[2022-09-22 06:33] VITALS: BP 134/75
[2022-09-22] MEDS: ACAMPROSATE CALCIUM 333 MG DR TABLET PO SCH ×4 (08:39→16:14)
[2022-09-22] MEDS: FERROUS SULFATE 325 MG EC TABLET PO SCH ×2 (08:41→09:00)
[2022-09-22] MEDS: TAMSULOSIN HCL 0.4 MG CAPSULE PO SCH (21:34)
[2022-09-23] MEDS: LORazepam 2 MG TABLET PO PRN ×3 (03:05→16:20)
[2022-09-23] MEDS: RisperiDONE 4 MG TABLET PO SCH ×2 (08:17→16:14)
[2022-09-23] MEDS: BENZTROPINE MESYLATE 1 MG TABLET PO SCH ×2 (08:18→16:14)
[2022-09-23] MEDS: ACAMPROSATE CALCIUM 333 MG DR TABLET PO SCH ×3 (08:20→16:15)
[2022-09-23 08:40] VITALS: BP 129/67
[2022-09-23] MEDS: TAMSULOSIN HCL 0.4 MG CAPSULE PO SCH (21:13)
[2022-09-24 03:40] VITALS: BP 127/77
[2022-09-24] MEDS: LORazepam 2 MG TABLET PO PRN ×4 (03:44→21:12)
[2022-09-24] MEDS: RisperiDONE 4 MG TABLET PO SCH ×2 (07:27→17:34)
[2022-09-24] MEDS: ACAMPROSATE CALCIUM 333 MG DR TABLET PO SCH ×3 (07:38→17:00)
[2022-09-24] MEDS: BENZTROPINE MESYLATE 1 MG TABLET PO SCH ×2 (07:38→17:00)
[2022-09-24] MEDS: FERROUS SULFATE 325 MG EC TABLET PO SCH (07:38)
[2022-09-24 09:42] VITALS: BP 100/64
[2022-09-24 16:35] VITALS: BP 115/64
[2022-09-24] MEDS: TAMSULOSIN HCL 0.4 MG CAPSULE PO SCH (20:37)
[2022-09-24 21:05] VITALS: BP 128/77
[2022-09-25] MEDS: LORazepam 2 MG TABLET PO PRN (05:48)
[2022-09-25 08:00] VITALS: BP 132/97
[2022-09-25] MEDS: BENZTROPINE MESYLATE 1 MG TABLET PO SCH (08:30)
[2022-09-25] MEDS: ACAMPROSATE CALCIUM 333 MG DR TABLET PO SCH ×3 (08:30→11:47)
[2022-09-25] MEDS: RisperiDONE 4 MG TABLET PO SCH (08:31)
== END 2022-09-25 15:51 | disposition home or self-care (01) | DRG 885 ==
LOC: EMS 16:19 → 3EX 21:44
PROVIDERS: ADMIT Psychiatry & Neurology Psychiatry; ATTEND Psychiatry & Neurology Psychiatry
DX: F25.9 Schizoaffective disorder, unspecified (principal); B19.20 Unspecified viral hepatitis C without hepatic coma; F17.200 Nicotine dependence, unspecified, uncomplicated; G47.00 Insomnia, unspecified; I10 Essential (primary) hypertension; J44.9 Chronic obstructive pulmonary disease, unspecified; K59.00 Constipation, unspecified; M19.90 Unspecified osteoarthritis, unspecified site; R45.850 Homicidal ideations; K21.9 Gastro-esophageal reflux disease without esophagitis; Z96.641 Presence of right artificial hip joint; G89.29 Other chronic pain; F41.9 Anxiety disorder, unspecified; Z79.899 Other long term (current) drug therapy; Z88.8 Allergy status to other drugs, medicaments and biological substances; Z88.1 Allergy status to other antibiotic agents; Z88.2 Allergy status to sulfonamides
CPT/HCPCS: 80307; 99285; G0378